=== PATIENT | male | born 1990 | race Caucasian/White ===

== ENCOUNTER 2023-07-10 07:53 | Outpatient (OUT) | payer BC, SELFPAY ==
--- NOTE | 2023-07-10 | CT_ITS ---
The [address] [address] Patient Name: GAEL ROBISON MRN: [id number] date: 1990 Sex: M Assigned Patient Location: CT Current Patient Location: CT Accession/Order Number: [id number] Exam Date: 07/10/2023 08:15 Report Date: 07/10/2023 14:28 At the request of: JASMEET WINKLER Procedure: CT head/brain wo con CT head/brain wo con, 07/10/2023 8:15 AM EDT INDICATION: PRESSURE IN HEAD COMPARISON: There is no appropriate prior study for comparison. TECHNIQUE: Axial CT images of the brain from skull base to vertex, including portions of the face and sinuses, were obtained without contrast . Multiplanar reformatted images were generated and reviewed as needed. Dose reduction techniques were achieved by using automated exposure control and/or adjustment of mA and/or kV according to patient size and/or use of iterative reconstruction technique. FINDINGS: The cerebral sulci as well as ventricular system are appropriate for age. There is no intracranial mass, mass effect, midline shift, intra or extra-axial fluid collection or hemorrhage. Mild focal thickening within the left ethmoidal cells. The visualized portions of orbits, mastoid air cells as well as remainder of paranasal sinuses are unremarkable. There is no suspicious osteolytic or osteoblastic lesion. CT/CT head/brain wo con IMPRESSION: No acute intracranial process is noted. Electronically authenticated by: CARLOS A ROSADO Date: 07/10/2023 14:28
== END 2023-07-10 07:54 | disposition home or self-care (01) ==
PROVIDERS: PCP Family Medicine; Visit Provider Family Medicine
DX: R51.9 Headache, unspecified (principal)
CPT/HCPCS: 70450

== ENCOUNTER 2025-05-07 14:23 | Outpatient (OUT) | payer BC, SELFPAY ==
--- OUTSIDE RECORDS SUMMARY | 2025-01-23 05:30 | XMS_ITS ---
Author Organization [facility] vices Address [address] [place], [place] [address], [place] [id number] Care Team Providers Care Pocket Builder Name Role Phone Maynor Robles Unavailable [phone] REASON FOR VISIT Prophy (A)(35) Encounters Encounter Location Date Provider Diagnosis [facility] [address] [place], [place] [id number] 01/23/2025 Maynor Robles Plan Of Treatment No Information Progress Notes * Conrad ROBISONDOB: 0 (35 yo M)Acc No.[id number]:01/23/2025 Patient: Conrad ORDONEZ Provider: Ammy Robles DDS :1990 A ge:35 Y S ex:Male Date:01/23/2025 Address:[address] [place], [place] [id number] Subjective: * Chief Complaints: * 1 . Prophy (A)(35). * Medical History: Objective: * Vitals: Assessment: Plan: * Treatment: * Billing Information: * Visit Code: * Procedure Codes: * Electronic signature of Ana Robles DDS on 05/07/2025 at 02:27 PM EDT Sign off status: Pending * Provider: Ammy Robles DDS Date: 01/23/2025 Generated for Christie moreno/Shree/Lenoreitting on: 05/07/2025 02:27 PM EDT
--- OUTSIDE RECORDS SUMMARY | 2025-05-07 14:26 | XMS_ITS | Encounter Summary ---
Author Organization [facility] Address [address] [facility] [place] [address] Care Team Providers Care Environmental Services Worker Name Role Phone Tomy Kelly MD Primary Care Provider [phone] Bryn Gibson MD Unavailable [phone] Encounter Details Date Type Department Care Team (Latest Contact Info) Description 04/24/2025 Travel Social History Tobacco Use Types Packs/Day Years Used Date Smoking Tobacco: Former Cigarettes Q uit: 07/26/2024 Smokeless Tobacco: Current Comments:1-2 cigs/day Alcohol Use Standard Drinks/Week Comments Yes 0 (1 standard drink = 0.6 oz pur e alcohol) Humiliation, Afraid, Rape, and Kick questionnair e Answer Date Recorded Within the last year, have y ou been afraid of your partner or ex-partner? No 07/13/2023 Within the last year, have y ou been humiliated or emotionally abused in other ways by your partner or ex-partner? No Within the last year, have y ou been kicked, hit, slapped, or otherwise physically hurt by your partner or ex-partner? No 07/13/2023 Within the last year, have y ou been raped or forced to have any kind of sexual activity by your partner or ex-partner? No 07/13/2023 Social Connection and Isolat ion Panel [NHANES] Answer Date Recorded In a typical week, how many times do you talk on the phone with family, friends, or neighbors? More than three times a week 07/13/2023 How often do you get togethe r with friends or relatives? Once a week 07/13/2023 How often do you attend chur ch or adventism services? Never 07/13/2023 Do you belong to any clubs o r organizations such as buddhism groups, unions, fraternal or athletic groups, or school groups? Yes 07/13/2023 How often do you attend meet ings of the clubs or organizations you belong to? Never 07/13/2023 Are you , , di vorced, , never , or living with a partner? 07/13/2023 AUDIT-C Answer Date Recorded Q1: How often do you have a drink containing alcohol? 4 or more times a week 07/13/2023 Q2: How many drinks containi ng alcohol do you have on a typical day when you are drinking? 1 or 2 Q3: How often do you have si x or more drinks on one occasion? Weekly 07/13/2023 Overall Financial Resource Strain (CARDIA) Answe r Date Recorded How hard is it for you to pa y for the very basics like food, housing, medical care, and heating? Not very hard 07/13/2023 PHQ-2 Answer Date Recorded Patient Health Questionnaire-2 Score 0 04/11/2025 [facility]at [facility] - Occupational Stress Questionnaire Answer Date Recorded Do you feel stress - tense, restless, nervous, or anxious, or unable to sleep at night because your mind is troubled all the time - these days? To some extent 07/13/2023 Exercise Vital Sign Answer Date Recorde d On average, how many days pe r week do you engage in moderate to strenuous exercise (like a brisk walk)? 5 days 07/13/2023 On average, how many minutes do you engage in exercise at this level? 150+ min 07/13/2023 Hunger Vital Sign Answer Date Recorded Within the past 12 months, y ou worried that your food would run out before you got the money to buy more. Never true 07/13/20 23 Within the past 12 months, t he food you bought just didn't last and you didn't have money to get more. Never true 07/13/2023 PRAPARE - Transportation Answer Date Re corded In the past 12 months, has l ack of transportation kept you from medical appointments or from getting medications? No 06/27 In the past 12 months, has l ack of transportation kept you from meetings, work, or from getting things needed for daily living? No 07/13/2023 Housing Stability Vital Sign Answer Lincoln e Recorded In the last 12 months, was t here a time when you were not able to pay the mortgage or rent on time? No 07/13/2023 In the last 12 months, how many places have you lived? 1 07/13/2023 In the last 12 months, was t here a time when you did not have a steady place to sleep or slept in a retirement (including now)? No 07/13/2023 Sex and Gender Information Value Date Recorded Sex Assigned at Not on file Legal Sex Male 6:52 PM EDT Gender Identity Not on file Sexual Orientation Not on file documented as of this encounter Plan of Treatment Upcoming Encounters Date Type Department Care Team (Late st Contact Info) Description 06/13/2025 5:00 PM EDT Office Visit [facility] [place] [facility] [address] [place] [place] [address] Naomi Duggan PA [address] [place] [address] documented as of this encounter Visit Diagnoses Not on filedocumented in this encounter Care Teams Environmental Services Worker Relationship Specialty Start Date End Date Tomy Kelly MD [address] [place] [address] PCP - General Family Medicine 02/02/23 Bryn Gibson MD [address] [place] [address] PCP - Yadiel Commercial 09/27/23 documented as of this encounter
--- OUTSIDE RECORDS SUMMARY | 2025-05-07 14:26 | XMS_ITS | Encounter Summary ---
Author Organization [facility] Address [address] [place] [address] Care Team Providers Care Manager R D Name Role Phone Tomy Kelly MD Primary Care Provider [phone] Bryn Gibson MD Unavailable [phone] Reason for Referral * Consultation (Routine) - Authorized Specialty Diagnoses / Procedures Referred By Contac t Referred To Contact Pain Medicine Diagnoses Degeneration of intervertebral disc of lumbar region with discogenic back pain and lower extremity pain Chronic bilateral low back pain with left-sided sciatica Procedures CT OFFICE/OUTPATIENT CARE ONE AT [facility] 60 MINUTES Naomi Duggan PA [address] [facility] [address] [place] [address] Phone: tel: fax: Fredi Lemos MD [address] [place] [address] Phone: tel: fax: Referral ID Status Reason Start Date Expiration Date Visits Requested Visits Authorized [id number] Authorized Specialty Services Required 04/25/2025 10/22/2025 1 1 Encounter Details Date Type Department Care Team (Late st Contact Info) Description 04/25/2025 Results [facility] [address] [facility] [address] [place] [address] Naomi Duggan PA [address] [facility] [address] [place] [address] Degeneration of intervertebral disc of lumbar region with discogenic back pain and lower extremity pain; Chronic bilateral low back pain with left-sided sciatica Social History Tobacco Use Types Packs/Day Years [...] 07/13/2023 How often do you attend chur or judaism services? Never 07/13/2023 Do you belong to any clubs o r organizations such as synagogue groups, unions, fraternal or athletic groups, or [...] Recorded Patient Health Questionnaire-2 Score 0 04/11/2025 [facility] of [facility]at ional [facility] - Occupational Stress Questionnaire Answer Date Recorded [...] place to sleep or slept in a correction (including now)? No 07/13/2023 Sex and Gender Information Value Date Recorded Sex Assigned at Not on file Legal Sex Male 6:52 PM EDT Gender Identity Not on file Sexual Orientation Not on file documented as of this encounter Miscellaneous Notes * Telephone Encounter - Tressa Bolaños MA - 04/25/2025 3:14 PM EDT Pt notified and willing to see pain management at [facility] * Telephone Encounter - CONOR Dubois - 04/25/2025 2:28 PM EDT Please let pt know that the MRI of his lumbar spine showed a large disc protrusion at the L4-L5 causing some some narrowing of the area by the L5 nerve root, and causing some mild to moderate spinal canal narrowing at this level. Some other degenerative (arthritic) changes are noted, but nothing assignificant as at the L4-L5 level. I would recommend either a referral to Pain Management, for consideration of possible injections tohelp with his symptoms, or referral to a Neurosurgeon for a consult. documented in this encounter Plan of Treatment Upcoming Encounters Date Type Department Care Team (Late st Contact Info) Description 06/13/2025 5:00 PM EDT Office Visit [facility] [place] [facility] [address] [facility] [address] [place] [address] Naomi Duggan PA [address] [facility] [address] [place] [address] Scheduled Referrals Name Type Priority Associated Diagnoses Orde r Schedule Ambulatory referral to Pain Medicine Outpatient Referral Routine Degeneration of intervertebral disc of lumbar region with discogenic back pain and lower extremity pain Chronic bilateral low back pain with left-sided sciatica Expected: 04/25/2025 (Approximate), Expires: 10/26/2025 documented as of this encounter Visit Diagnoses Diagnosis Degeneration of intervertebral disc of lumbar region with discogenic back pain and lower extremity pain Chronic bilateral low back pain with left-sided sciatica documented in this encounter Care Teams Manager R D Relationship Specialty Start Date End Date Tomy Kelly MD [address] [facility] [address] [place] [address] PCP - General Family Medicine 02/02/23 rByn Gibson MD [address] [facility] [address] [place] [address] PCP - Yadiel Commercial 09/27/23 documented as of this encounter
--- OUTSIDE RECORDS SUMMARY | 2025-05-07 14:26 | XMS_ITS | Encounter Summary ---
Author Organization [facility] Address [address] [facility] [place] [address] Care Team Providers Care Bereavement Program Coordinator Name Role Phone Tomy Kelly MD Primary Care Provider [phone] Bryn Gibson MD Unavailable [phone] Encounter Details Date Type Department Care Team (Late st Contact Info) Description 04/30/2025 Telephone [facility] [place] [facility] [address] [facility] [address] [place] [phone] Tomy Kelly MD [address] [place] [facility] [address] [place] [address] Social History Tobacco Use Types Packs/Day Years [...] often do you attend chur ch or evangelical services? Never 07/13/2023 Do you belong to any clubs o r organizations such as catholic groups, unions, fraternal or athletic groups, or [...] when you are drinking? 1 or 2 3 Q3: How often do you have si x or more drinks on one occasion? Weekly 07/13/2023 Overall Financial Resource Strain (CARDIA) Answe r Date Recorded How hard is it for you to pa y for the very basics like food, housing, medical care, and heating? Not very hard 07/13/2023 PHQ-2 Answer Date Recorded Patient Health Questionnaire-2 Score 0 04/11/2025 [facility] Questionnaire Answer Date [...] place to sleep or slept in a senior care (including now)? No 07/13/2023 Sex and Gender Information Value Date Recorded Sex Assigned at Not on file Legal Sex Male 6:52 PM EDT Gender Identity Not on file Sexual Orientation Not on file documented as of this encounter Miscellaneous Notes * Telephone Encounter - Tressa Bolaños MA - 04/30/2025 10:53 AM EDT Pt notified * Telephone Encounter - CONOR Dubois - 04/30/2025 10:50 AM EDT Sent in a small supply of [place] for him to take for pain as needed. Please let pt know that it can cause drowsiness. Take only as needed. * Telephone Encounter - Clara Waller - 04/30/2025 9:12 AM EDT Patient called asking if there is anything that can be done for him between now and seeing pain management. He said he can't get into them until the end of the month and has an appt scheduled but hisback hurts so bad that he can barely walk. documented in this encounter Plan of Treatment Upcoming Encounters Date Type Department Care Team (Late st Contact Info) Description 06/13/2025 5:00 PM EDT Office Visit [facility] [place] [facility] [address] [facility] [address] [place] [address] Naomi Duggan PA [address] [place] [facility] [address] [place] [address] documented as of this encounter Visit Diagnoses Diagnosis Degeneration of intervertebral disc of lumbar region with discogenic back pain and lower extremity pain- Primary documented in this encounter Care Teams Bereavement Program Coordinator Relationship Specialty Start Date End Date Tomy Kelly MD [address] [facility] [address] [place] [address] PCP - General Family Medicine 02/02/23 Bryn Gibson MD [address] [place] [facility] [address] [place] [address] PCP - Yadiel Montague 09/27/23 documented as of this encounter
--- OUTSIDE RECORDS SUMMARY | 2025-05-07 14:27 | XMS_ITS | Clinical Summary ---
Author Organization Bulu Box tem Address [id number] [address] [place] [address] Care Team Providers Care Pipe Smoker Machine Operator Name Role Phone Unavailable Primary Care Provider Unavailabl e Encounters Date Type Department Care Team Description 02/16/2025 Travel from Last 3 Months Social History Tobacco Use Types Packs/Day Years Used Date Smoking Tobacco: Never Assessed Childcare Answer Date Recorded Childcare Unknown 03/07/2019 Employment Answer Date Recorded Employment Unknown 03/07/2019 Sex and Gender Information Value Date Recorded Sex Assigned at Not on file Legal Sex Male 9:25 PM EDT Gender Identity Not on file Sexual Orientation Not on file Plan of Treatment Health Maintenance Due Date Last Done Comments Depression Screening 2002 Tobacco Screening 2002 Adult BMI Screening 01/08/2008 Influenza Vaccine 05/28/2025 08/09/2024, , 07/14/2020, Additional history exists DTaP,Tdap and Td Vaccines (3 - Td or Tdap) 08/12/2029 08/12/2019, 08/12/2019 Medical Devices Not on file Procedures Procedure Name Priority Date/Time Associated Diagnosis Comments SEMEN ANALYSIS, POST-VASECTOMY Routine 02/16/2025 1:40 PM EDT Encounter for sterilization from Last 3 Months Results * Semen analysis, post-vasectomy (02/16/2025 1:40 PM EDT) Semen-post vasectomy No sperm seen on wet prep. No sperm seen on cytospin preps. No sperm seen on wet prep. No sperm seen on cytospin preps. 02/17/2025 10:15 AM EDT [facility] Semen Penile structure / Unknown 02/16/2025 1:40 PM EDT 02/16/2025 3:01 PM EDT Chris Moise MD BODY FLUIDS AND STOOL S ORDERABLES Final Result [facility] [address] [place] [address], from Last [address] [place] [address] [place] [address]
--- OUTSIDE RECORDS SUMMARY | 2025-05-07 14:27 | XMS_ITS | Encounter Summary ---
Author Organization [facility] Address [address] [facility] [place] [address] Care Team Providers Care Plasterer Spray Gun Name Role Phone Tomy Kelly MD Primary Care Provider [phone] Brny Gibson MD Unavailable [phone] Encounter Details Date Type Department Care Team (Late st Contact Info) Description 07/13/2023 Orders Only [facility] [place] [facility] [address] [place] [place] [address] A, Unknown Practice [address] [id number] Social History Tobacco Use Types Packs/Day Years Used Date Smoking Tobacco: Never Assessed Humiliation, Afraid, Rape, and Kick questionnair e [...] often do you attend chur ch or gnosticism services? Never 07/13/2023 Do you belong to any clubs o r organizations such as voodoo groups, unions, fraternal or athletic groups, or [...] care, and heating? Not very hard 07/13/2023 [facility] - Occupational Stress Questionnaire Answer Date Recorded [...] place to sleep or slept in a intermediate (including now)? No 07/13/2023 Sex and Gender Information Value Date Recorded Sex Assigned at Not on file Legal Sex Male 6:52 PM EDT Gender Identity Not on file Sexual Orientation Not on file COVID-19 Exposure Response Date Recorded In the last 10 days, have yo u been in contact with someone who was confirmed or suspected to have Coronavirus/COVID-19? No / Unsure 07/13/2023 5:08 PM EDT documented as of this encounter Functional Status * Audit-C Score Answer Date of Assessment Author 7 07/13/2023 5:07 PM EDT Mychart, Generic * Q1: How often do you have a drink containing alcohol? Answer Date of Assessment Author 4 or more times a week 07/13/2023 5:07 PM EDT My chart, Generic * Q2: How many drinks containing alcohol do you have on a typical day when you are drinking? Answer Date of Assessment Author 1 or 2 07/13/2023 5:07 PM EDT Mychart, Generic * Q3: How often do you have six or more drinks on one occasion? Answer Date of Assessment Author Weekly 07/13/2023 5:07 PM EDT Mychart, Generic documented as of this encounter Plan of Treatment Upcoming Encounters Date Type Department Care Team (Late st Contact Info) Description 06/13/2025 5:00 PM EDT Office Visit [facility] [place] [facility] [address] [facility] [address] [place] [address] Naomi Duggan PA [address] [place] [address] [place] [address] documented as of this encounter Procedures Procedure Name Priority Date/Time Associated Diagnosis Comments CT HEAD OR BRAIN W/ & W/O CONTRAST Routine 07/10/2023 10:54 AM EDT documented in this encounter Results * CT HEAD OR BRAIN W/ & W/O CONTRAST (07/10/2023 10:54 AM EDT) Anatomical Region Laterality Modality Radiographic Magalie ging us Unknown Practice A IMG XR PROCEDURES Final Resul t documented in this encounter Visit Diagnoses Not on filedocumented in this encounter Care Teams Plasterer Spray Gun Relationship Specialty Start Date End Date Tomy Kelly MD [address] [place] [address] [place] [address] PCP - General Family Medicine 02/02/23 Bryn Gibson MD [address] [facility] [address] [place] [address] PCP - Yadiel [employer] 09/27/23 documented as of this encounter
--- OUTSIDE RECORDS SUMMARY | 2025-05-07 14:27 | XMS_ITS | Encounter Summary ---
Author Organization [facility] Address [address] [facility] [place] [address] Care Team Providers Care Adult Probation Officer Name Role Phone Tomy Kelly MD Primary Care Provider [phone] Bryn Gibson MD Unavailable [phone] Encounter Details Date Type Department Care Team (Late st Contact Info) Description 08/14/2024 [facility] [place] [facility] [address] [facility] [address] [place] [address] Tomy Kelyl MD 112 [facility] 110 [place] [address] Social History Tobacco Use Types Packs/Day Years Used Date Smoking Tobacco: Former Cigarettes Q uit: 07/26/2024 Smokeless Tobacco: Never Comments:6-10 cigs/day Alcohol Use Standard Drinks/Week Comments Yes [...] often do you attend chur ch or baptist services? Never 07/13/2023 Do you belong to any clubs o r organizations such as taoism groups, unions, fraternal or athletic groups, or [...] care, and heating? Not very hard 07/13/2023 [facility] - Occupational Stress [...] place to sleep or slept in a nursing home (including now)? No 07/13/2023 Sex and Gender [...] Visit [facility] [place] [facility] [address] [facility] [address] [place] [address] Naomi Duggan PA [address] [facility] [address] [place] [address] documented as of this encounter Visit Diagnoses Not on filedocumented in this encounter Care Teams Adult Probation Officer Relationship Specialty Start Date End Date Tomy Kelly MD [address] [place] [address] [place] [address] PCP - General Family Medicine 02/02/23 Bryn Gibson MD [address] [place] [address] [place] [address] PCP - Yadiel [employer] 09/27/23 documented as of this encounter
--- OUTSIDE RECORDS SUMMARY | 2025-05-07 14:27 | XMS_ITS | Encounter Summary ---
Author Organization [facility] Address [address] [facility] [place] [address] Care Team Providers Care Administrative Coordinator Name Role Phone Tomy Kelly MD Primary Care Provider [phone] Bryn Gibson MD Unavailable Encounter Details Date Type Department Care Team (Late st Contact Info) Description 10/23/2024 Abstract [facility] [place] [facility] [address] [facility] [address] [place] [address] Tomy Kelly MD [address] [facility] [address] [place] [address] Social History Tobacco Use Types Packs/Day Years [...] often do you attend chur ch or yazidi services? Never 07/13/2023 Do you belong to any clubs o r organizations such as druze groups, unions, fraternal or athletic groups, or [...] care, and heating? Not very hard 07/13/2023 [facility] - Occupational Stress [...] place to sleep or slept in a halfway (including now)? No 07/13/2023 Sex and Gender [...] Visit [facility] [place] [facility] [address] [facility] [address] [place] [address] Naomi Duggan PA [address] [facility] [address] [place] [address] documented as of this encounter Visit Diagnoses Not on filedocumented in this encounter Care Teams Administrative Coordinator Relationship Specialty Start Date End Date Tomy Kelly MD [address] [place] [address] [place] [address] PCP - General Family Medicine 02/02/23 Bryn Gibson MD [address] [place] [address] [place] [address] PCP - Yadiel [employer] 09/27/23 documented as of this encounter
--- OUTSIDE RECORDS SUMMARY | 2025-05-07 14:27 | XMS_ITS | Encounter Summary ---
Author Organization [facility] Address [address] [facility] [place] [address] Care Team Providers Care Press Smith Helper Name Role Phone Tomy Kelly MD Primary Care Provider [phone] Bryn Gibson MD Unavailable [phone] Encounter Details Date Type Department Care Team (Late st Contact Info) Description 11/08/2023 Abstract [facility] [place] [facility] [address] [facility] 110 [place] [address] Tomy Kelly MD 112 [facility] 110 [place] [address] Social History Tobacco Use Types Packs/Day Years Used Date Smoking Tobacco: Every Day Cigarettes Smokeless Tobacco: Never Comments:6-10 cigs/day Alcohol Use [...] any clubs o r organizations such as mormonism groups, unions, fraternal or athletic groups, or [...] care, and heating? Not very hard 07/13/2023 [facility] Questionnaire Answer Date [...] place to sleep or slept in a residential (including now)? No 07/13/2023 Sex and Gender [...] Visit [facility] [place] [facility] [address] [facility] [address] [place] [address] Naomi Duggan PA [address] [facility] [address] [place] [address] documented as of this encounter Visit Diagnoses Not on filedocumented in this encounter Care Teams Press Smith Helper Relationship Specialty Start Date End Date Tomy Kelly MD [address] [place] [address] [place] [address] PCP - General Family Medicine 02/02/23 Bryn Gibson MD [address] [place] [address] [place] [address] PCP - [employer] 09/27/23 documented as of this encounter
--- OUTSIDE RECORDS SUMMARY | 2025-05-07 14:27 | XMS_ITS | Clinical Summary ---
Author Organization [facility] Healthcare Address [address] [place] [address] Care Team Providers Care Party Director Name Role Phone Tomy Kelly MD Primary Care Provider [phone] Bryn Gibson MD Unavailable [phone] Allergies No known active allergies Medications tiZANidine (Zanaflex) 4 MG tabletIndications: Lumbar paraspinal muscle spasm Take 1 tablet (4 mg) by mouth 2 (two) times a day as needed for muscle spasms 60 tablet 5 08/09/20 24 Active propranolol (Inderal) 40 MG tabletIndications: Primary hypertension TAKE 1 TABLET BY MOUTH EVERY MORNING 100 tablet 2 08/16/20 24 Active albuterol HFA 90 mcg/act inhalerIndications :Shortness of breath Inhale 2 puffs in the morning and 2 puffs before bedtime. 18 g 11/08/19 25 Active fluticasone (Flonase) 50 MCG/ACT nasal sprayIndications:P ND (post-nasal drip) Administer 2 sprays into each nostril Daily for 10 days Shake gently. Before first use, prime pump. After use, clean tip and replace cap. 16 g 11/08/19 25 Active predniSONE (Deltasone) 10 MG tabletIndications: Degeneration of intervertebral disc of lumbar region with discogenic back pain and lower extremity pain Take 4 tablets (40 mg) by mouth Daily for 3 days, THEN 3 tablets (30 mg) Daily for 3 days, THEN 2 tablets (20 mg) Daily for 3 days, THEN 1 tablet (10 mg) Daily for 3 days. 30 tablet 04/16/20 25 025 HYDROcodone-acetam inophen ([place]) 5-325 MG tabletIndications: Degeneration of intervertebral disc of lumbar region with discogenic back pain and lower extremity pain Take 1 tablet by mouth every 6 (six) hours if needed for severe pain for up to 5 days 20 tablet 04/30/20 25 025 Hospital, Clinic, or Other Facility Administered Medication Ordered Dose Route Frequency Start Date End Date Status ketorolac (Toradol) injection 60 mgIndications:Chronic bilateral low back pain with left-sided sciatica 60 mg IM Once 04/11/2025 04/11/2025 Ended Active Problems Problem Noted Date Diagnosed Date Degeneration of intervertebr al disc of lumbar region with discogenic back pain and lower extremity pain 04/12/2025 Lumbar paraspinal muscle spasm 08/09/2024 Primary hypertension 09/07/2023 Shoulder joint pain 07/14/2023 Tobacco dependence 07/14/2023 Encounters Date Type Department Care Team Description 04/30/2025 Telephone [facility] [address] [facility] [address] [place] [phone] Tomy Kelly MD 04/25/2025 Results Follow-Up [facility] [place] [facility] [address] [facility] [address] [place] [phone] Naomi Duggan PA Degeneration of intervertebral disc of lumbar region with discogenic back pain and lower extremity pain; Chronic bilateral low back pain with left-sided sciatica 04/24/2025 1:30 PM EDT Ancillary Procedure [facility] [address] [place] [phone] Degeneration of intervertebral disc of lumbar region with discogenic back pain and lower extremity pain 04/24/2025 Travel 04/16/2025 Telephone [facility] [place] [facility] [address] [facility] [address] [place] [phone] Tomy Kelly MD 04/12/2025 Telephone [facility] [place] [address] [place] [phone] Naomi Duggan PA 04/11/2025 4:00 PM EDT Office Visit [facility] [place] [facility] [address] [place] [place] [phone] Naomi Duggan PA Chronic bilateral low back pain with left-sided sciatica (Primary Dx) 04/11/2025 2:00 PM EDT Ancillary Procedure [facility] [address] [place] [address] Chronic bilateral low back pain with left-sided sciatica 04/11/2025 1:30 PM EDT Ancillary Procedure [facility] [address] [place] [address] Persistent cough for 3 weeks or longer 04/11/2025 Travel from Last 3 Months Immunizations Immunization Administration Dates Next Due Influenza, injectable, MDCK, preservative free, quadrivalent 08/02/2022,08/12/2019 Influenza, injectable, quadrivalent, preservativ e free 07/14/2020,11/16/2018 Influenza, seasonal, injectable, preservative fr ee 08/09/2024 Td (adult), 5 Lf tetanus tox oid, preservative free, adsorbed 08/12/2019 Tdap 08/12/2019 Family History Medical History Relation Name Comments Diabetes Father Relation Name Status Comments Father Alive Mother Alive Social History Tobacco Use Types Packs/Day Years Used Date Smoking Tobacco: Former Cigarettes Q uit: 07/26/2024 Smokeless Tobacco: Current Tobacco Cessation:Ready to Q uit: Not Asked; Counseling Given: Yes Comments:1-2 cigs/day Alcohol Use Standard Drinks/Week Comments [...] How often do you attend chur or oriental orthodox services? Never 07/13/2023 Do you belong to any clubs o r organizations such as religious groups, unions, fraternal or athletic groups, or [...] Recorded Patient Health Questionnaire-2 Score 0 04/11/2025 [facility] - Occupational Stress [...] place to sleep or slept in a [place] facility (including now)? No 07/13/2023 Sex and Gender Information Value Date Recorded Sex Assigned at Not on file Legal Sex Male 6:52 PM EDT Gender Identity Not on file Sexual Orientation Not on file Last Filed Vital Signs Vital Sign Reading Time Taken Comments Blood Pressure 130/88 04/11/2025 3:51 PM EDT Pulse 77 04/11/2025 3:51 PM EDT Temperature 36.7 C (98 F) 12/06/2024 5:03 PM EDT Respiratory Rate 16 12/06/2024 5:03 PM EDT Oxygen Saturation 98% 04/11/2025 3:51 PM EDT Inhaled Oxygen Concentration - - Weight 106 kg (233 lb) 04/11/2025 3:51 PM EDT Height 182.9 cm (6') 04/11/2025 3:51 PM EDT Body Mass Index 31.6 04/11/2025 3:51 PM EDT Plan of Treatment Upcoming Encounters Date Type Department Care Team (Late st Contact Info) Description 06/13/2025 5:00 PM EDT Office Visit [facility] [place] [facility] [address] [place] [address] Naomi Duggan PA [address] [place] [address] [place] [address] Health Maintenance Due Date Last Done Comments Influenza Vaccine (#1) 2025 4, 08/02/2022, 07/14/2020, Additional history exists Procedures Procedure Name Priority Date/Time Associated Diagnosis Comments MR LUMBAR SPINE WO CONTRAST Routine 04/24/2025 2:15 PM EDT Degeneration of intervertebral disc of lumbar region with discogenic back pain and lower extremity pain XR LUMBAR SPINE 4+ VIEWS WITH FLEXION EXTENSION Routine 04/11/2025 4:52 PM EDT Chronic bilateral low back pain with left-sided sciatica XR CHEST 2 VIEWS Routine 04/11/2025 4:52 PM EDT Persistent cough for 3 weeks or longer from Last 3 Months Results * MR lumbar spine wo contrast (04/24/2025 2:15 PM EDT) Anatomical Region Laterality Modality Spine, L-spine Magnetic Resonan ce 04/25/2025 10:0 3 AM EDT Impressions 04/25/2025 10:22 AM EDT Degenerative changes lumbar spine as discussed. Large disc protrusion at L4-L5 as discussed. ELECTRONICALLY SIGNED BY: MD Antoinette Knox 04/25/2025 10:22 AM EDT EXAMINATION/TECHNIQUE: MR LUMBAR SPINE WO CONTRAST HISTORY: Worsening back pain. Concern for foraminal narrowing or canal stenosis. Chronic back pain with left radiculopathy. Denies prior lumbar surgery. COMPARISON: Radiographs 04/11/2025. RESULT: Counting reference: Lumbosacral junction. For the purposes of this report, L5-S1 is considered the last well-formed disc space. 5 lumbar type vertebral bodies. Alignment: Straightening of the lumbar lordosis. Bone marrow signal: No evidence for acute or chronic fracture. No destructive osseous lesions. Endplate degenerative signal especially at L4-L5 and L5-S1. Multilevel disc height loss, especially lower lumbar spine. Conus: The conus is within normal limits of signal intensity and morphology. Paraspinal soft tissues: Unremarkable. Lower thoracic spine: Visualized lower thoracic canal and foramina without significant narrowing. T12-L1: No significant canal or foraminal narrowing. L1-L2: No significant canal or foraminal narrowing. L2-L3: Small disc bulge. Endplate osteophytes. Ligamentous hypertrophy. Facet degenerative changes. No significant canal or foraminal narrowing. L3-L4: Broad-based disc bulge. Small central zone disc protrusion. Endplate osteophytes. Ligamentous hypertrophy. Facet degenerative changes. No significant canal or foraminal narrowing. L4-L5: Large disc protrusion in the central to left subarticular region, with abutment/effacement of the descending left L5 and adjacent nerve roots. The disc protrusion measures around 2.1 cm transverse by 0.8 cm AP, and also contributes to mild to moderate canal narrowing at this level. Endplate osteophytes, disc height loss, facet degenerative changes, and ligamentous hypertrophy. No significant foraminal narrowing. Left subarticular narrowing. L5-S1: Small central zone disc protrusion. Annular fissure. Disc height loss. Endplate osteophytes. Facet degenerative changes. Ligamentous hypertrophy. Mild canal narrowing without significant foraminal narrowing. Sacrum and iliac wings: The visualized sacrum and iliac wings are unremarkable. Procedure Note Bryn Montana MD - 04/25/2025 EXAMINATION/TECHNIQUE: MR LUMBAR SPINE WO CONTRAST HISTORY: Worsening back pain. Concern for foraminal narrowing or canalstenosis. Chronic back pain with left radiculopathy. Denies prior lumbarsurgery. COMPARISON: Radiographs 04/11/2025. RESULT: Counting reference: Lumbosacral junction. For the purposes of thisreport, L5-S1 is considered the last well-formed disc space. 5 lumbar typevertebral bodies. Alignment: Straightening of the lumbar lordosis. Bone marrow signal: No evidence for acute or chronic fracture. Nodestructive osseous lesions. Endplate degenerative signal especially atL4-L5 and L5-S1. Multilevel disc height loss, especially lower lumbarspine. Conus: The conus is within normal limits of signal intensity andmorphology. Paraspinal soft tissues: Unremarkable. Lower thoracic spine: Visualized lower thoracic canal and foraminawithout significant narrowing. T12-L1: No significant canal or foraminal narrowing. L1-L2: No significant canal or foraminal narrowing. L2-L3: Small disc bulge. Endplate osteophytes. Ligamentous hypertrophy.Facet degenerative changes. No significant canal or foraminal narrowing. L3-L4: Broad-based disc bulge. Small central zone disc protrusion.Endplate osteophytes. Ligamentous hypertrophy. Facet degenerative changes.No significant canal or foraminal narrowing. L4-L5: Large disc protrusion in the central to left subarticularregion, with abutment/effacement of the descending left L5 and adjacentnerve roots. The disc protrusion measures around 2.1 cm transverse by 0.8cm AP, and also contributes to mild to moderate canal narrowing at thislevel. Endplate osteophytes, disc height loss, facet degenerative changes,and ligamentous hypertrophy. No significant foraminal narrowing. Leftsubarticular narrowing. L5-S1: Small central zone disc protrusion. Annular fissure. Disc heightloss. Endplate osteophytes. Facet degenerative changes. Ligamentoushypertrophy. Mild canal narrowing without significant foraminalnarrowing. Sacrum and iliac wings: The visualized sacrum and iliac wings areunremarkable. IMPRESSION: Degenerative changes lumbar spine as discussed. Large disc protrusion at L4-L5 as discussed. ELECTRONICALLY SIGNED BY: Bryn Montana MD Naomi PERDOMO IMG MRI PROCEDURES Final Resul t * XR lumbar spine 4+ views w flexion extension (04/11/2025 4:52 PM EDT) Anatomical Region Laterality Modality Spine, L-spine Radiographic Magalie ging 04/12/2025 10:4 4 AM EDT Impressions 04/12/2025 10:45 AM EDT Degenerative changes lower lumbar spine. ELECTRONICALLY SIGNED BY: Bryn Montana MD Located Within [facility] 04/12/2025 10:45 AM EDT EXAMINATION/TECHNIQUE: XR LUMBAR SPINE 4+ VIEWS WITH FLEXION EXTENSION HISTORY: Chronic low back pain. COMPARISON: None RESULT: Counting Reference: L5-S1 is the last well-formed disc space. Straightening of the lumbar lordosis. No significant change in alignment from flexion to extension. No evidence for acute fracture. Vertebral body heights maintained. Moderate disc height loss at L5-S1. Mild disc height loss at L4-L5. Endplate osteophytes. Lower facet degenerative changes. Visualized sacrum intact. SI joints intact. Visualized bony pelvis and hips intact. Soft tissues unremarkable. Procedure Note Bryn Monatna MD - 04/12/2025 EXAMINATION/TECHNIQUE: XR LUMBAR SPINE 4+ VIEWS WITH FLEXION EXTENSION HISTORY: Chronic low back pain. COMPARISON: None RESULT: Counting Reference: L5-S1 is the last well-formed disc space. Straightening of the lumbar lordosis. No significant change in alignmentfrom flexion to extension. No evidence for acute fracture. Vertebral bodyheights maintained. Moderate disc height loss at L5-S1. Mild disc heightloss at L4-L5. Endplate osteophytes. Lower facet degenerative changes.Visualized sacrum intact. SI joints intact. Visualized bony pelvis andhips intact. Soft tissues unremarkable. IMPRESSION: Degenerative changes lower lumbar spine. ELECTRONICALLY SIGNED BY: Bryn Montana MD Naomi PERDOMO IMG XR PROCEDURES Final Result * XR chest 2 views (04/11/2025 4:52 PM EDT) Anatomical Region Laterality Modality Chest Radiographic Magalie ging 04/12/2025 10:4 5 AM EDT Impressions 04/12/2025 10:45 AM EDT No acute radiographic findings. ELECTRONICALLY SIGNED BY: Bryn Montana MD Located Within [facility] 04/12/2025 10:45 AM EDT EXAMINATION/TECHNIQUE: XR CHEST 2 VIEWS HISTORY: Cough. COMPARISON: None RESULT: No consolidation. No pleural effusion. No pneumothorax. Normal cardiomediastinal silhouette. No acute osseous findings. Procedure Note Bryn Montana MD - 04/12/2025 EXAMINATION/TECHNIQUE: XR CHEST 2 VIEWS HISTORY: Cough. COMPARISON: None RESULT: No consolidation. No pleural effusion. No pneumothorax. Normalcardiomediastinal silhouette. No acute osseous findings. IMPRESSION: No acute radiographic findings. ELECTRONICALLY SIGNED BY: Bryn Montana MD Naomi PERDOMO IMG XR PROCEDURES Final Result from Last [place] [address] BS Care Teams Party Director Relationship Specialty Start Date End Date Tomy Kelly MD [address] [facility] [address] [place] [address] PCP - General Family Medicine 02/02/23 Bryn Gibson MD [address] [facility] [address] [place] [address] PCP - [place] [employer] 09/27/23
--- OUTSIDE RECORDS SUMMARY | 2025-05-07 14:27 | XMS_ITS | Encounter Summary ---
Author Organization [facility] Address [address] [facility] [place] [address] Care Team Providers Care Linux Kernel Engineer Name Role Phone Tomy Kelly MD Primary Care Provider [phone] Bryn Gibson MD Unavailable [phone] Encounter Details Date Type Department Care Team (Late st Contact Info) Description 10/03/2024 [facility] [place] [facility] [address] [facility] 110 [place] [phone] Tomy Kelly MD 112 [facility] 110 [place] [address] Social History Tobacco Use Types Packs/Day Years [...] often do you attend chur ch or uatsdin services? Never 07/13/2023 Do you belong to any clubs o r organizations such as roman catholic groups, unions, fraternal or athletic groups, [...] care, and heating? Not very hard 07/13/2023 [facility] ional [facility] - Occupational [...] Visit [facility] [place] [facility] [address] [facility] [address] [place] [address] Naomi Duggan PA [address] [facility] [address] [place] [address] documented as of this encounter Visit Diagnoses Not on filedocumented in this encounter Care Teams Linux Kernel Engineer Relationship Specialty Start Date End Date Tomy Kelly MD [address] [place] [address] [place] [address] PCP - General Family Medicine 02/02/23 Bryn Gibson MD [address] [place] [address] [place] [address] PCP - [employer] 09/27/23 documented as of this encounter
--- OUTSIDE RECORDS SUMMARY | 2025-05-07 14:27 | XMS_ITS | Encounter Summary ---
Author Organization [facility] Address [address] [facility] [place] [address] Care Team Providers Care Recovery Rn Name Role Phone Tomy Kelly MD Primary Care Provider [phone] Bryn Gibson MD Unavailable [phone] Encounter Details Date Type Department Care Team (Late st Contact Info) Description 07/14/2023 Abstract [facility] [place] [facility] [address] [facility] 110 [place] [phone] Naomi Duggan, CON[place] [address] [facility] 110 [place] [address] Social History Tobacco Use Types Packs/Day Years Used Date Smoking Tobacco: Every Day Cigarettes Smokeless Tobacco: Never Tobacco Cessation:Ready to Q uit: Not Asked; Counseling Given: Not Answered Comments:6-10 cigs/day Alcohol Use Standard Drinks/Week Comments [...] any clubs o r organizations such as shinto groups, unions, fraternal or athletic groups, or [...] care, and heating? Not very hard 07/13/2023 [facility] - [...] PM EDT documented as of this encounter Plan of Treatment Upcoming Encounters Date Type Department Care Team (Late st Contact Info) Description 06/13/2025 5:00 PM EDT Office Visit [facility] [place] [facility] [address] [facility] 110 [place] [address] Naomi Duggan PA [address] [facility] 110 [place] [address] documented as of this encounter Visit Diagnoses Not on filedocumented in this encounter Care Teams Recovery Rn Relationship Specialty Start Date End Date Tomy Kelly MD [address] [facility] [address] [place] [address] PCP - General Family Medicine 02/02/23 Bryn Gibson MD [address] [facility] 110 [place] [address] PCP - [place] [employer] 09/27/23 documented as of this encounter
--- OUTSIDE RECORDS SUMMARY | 2025-05-07 14:27 | XMS_ITS | Encounter Summary ---
Author Organization [facility] Address [address] [place] [address] Care Team Providers Care Oil Rig Roughneck Name Role Phone Tomy Winkler MD Primary Care Provider [phone] Bryn Gibson MD Unavailable [phone] Encounter Details Date Type Department Care Team (Late st Contact Info) Description 07/10/2023 Clinisync Result Encounter [facility] External Department Unsolicited Tomy Winkler MD [address] [place] [address] [place] [address] Social History Tobacco Use Types Packs/Day Years [...] any clubs o r organizations such as gnosticism groups, unions, fraternal or athletic groups, or [...] care, and heating? Not very hard 07/13/2023 [facility] ional Health - Occupational [...] place to sleep or slept in a prison (including now)? No 07/13/2023 Sex and Gender [...] [place] [facility] [address] [place] [place] [address] Naomi Duggan PA [address] [place] [address] [place] [address] documented as of this encounter Procedures Procedure Name Priority Date/Time Associated Diagnosis Comments CT HEAD/BRAIN WO 07/10/2023 2:28 PM EDT documented in this encounter Results * CT HEAD/BRAIN WO (07/10/2023 2:28 PM EDT) Anatomical Region Laterality Modality Radiographic Magalie ging 07/10/2023 2:28 PM EDT Narrative 07/10/2023 2:28 PM EDT [address] [address] [address] Scan Report Signed Patient: CONRAD ROBISON MR#: [id number] : 1990 Acct:[id number] Age/Sex: 33 / M ADM Date: 07/10/23 Loc: CT Attending Dr: TOMY WINKLER Ordering Physician: TOMY WINKLER Date of Service: 07/10/23 Procedure(s): CT head/brain wo con Accession Number(s): [id number] cc: TOMY WINKLER [address] [address] Patient Name: CONRAD ROBISON MRN: [id number] date: 1990 Sex: M Assigned Patient Location: CT Current Patient Location: CT Accession/Order Number: [id number] Exam Date: 07/10/2023 08:15 Report Date: 07/10/2023 14:28 At the request of: TOMY WINKLER Procedure: CT head/brain wo con CT head/brain wo con, 07/10/2023 8:15 AM EDT INDICATION: PRESSURE IN HEAD COMPARISON: There is no appropriate prior study for comparison. TECHNIQUE: Axial CT images of the brain from skull base to vertex, including portions of the face and sinuses, were obtained without contrast . Multiplanar reformatted images were generated and reviewed as needed. Dose reduction techniques were achieved by using automated exposure control and/or adjustment of mA and/or kV according to patient size and/or use of iterative reconstruction technique. FINDINGS: The cerebral sulci as well as ventricular system are appropriate for age. There is no intracranial mass, mass effect, midline shift, intra or extra-axial fluid collection or hemorrhage. Mild focal thickening within the left ethmoidal cells. The visualized portions of orbits, mastoid air cells as well as remainder of paranasal sinuses are unremarkable. There is no suspicious osteolytic or osteoblastic lesion. CT/CT head/brain wo con IMPRESSION: No acute intracranial process is noted. Electronically authenticated by: CAIO FLOWER Date: 07/10/2023 14:28 Dictated By: Caio Flower M.D. Signed By: 07/10/23 1431 DD/ 1428 TD/TT: Trash Collector: Procedure Note Radiology, Radiologist, MD - 07/12/2023 [place] [address] CT Scan Report Signed Patient: CONRAD ROBISON MMR#: [id number] : 1990Acct:[id number] Age/Sex: 33 / MADM Date: 07/10/23 Loc: CT Attending Dr: TOMY WINKLER Ordering Physician: TOMY WINKLER Date of Service: 07/10/23 Procedure(s): CT head/brain wo con Accession Number(s): [id number] cc: TOMY WINKLER [address] [address] Patient Name: CONRAD ROBISON MRN: [id number] date: 1990 Sex: M Assigned Patient Location: CT Current Patient Location: CT Accession/Order Number: [id number] Exam Date: 07/10/2023 08:15 Report Date: 07/10/2023 14:28 At the request of: TOMY WINKLER Procedure: CT head/brain wo con CT head/brain wo con, 07/10/2023 8:15 AM EDT INDICATION: PRESSURE IN HEAD COMPARISON: There is no appropriate prior study for comparison. TECHNIQUE: Axial CT images of the brain from skull base to vertex,including portions of the face and sinuses, were obtained without contrast .Multiplanar reformatted images were generated and reviewed as needed. Dose reduction techniques were achieved by using automated exposurecontrol and/or adjustment of mA and/or kV according to patient size and/or use of iterative reconstruction technique. FINDINGS: The cerebral sulci as well as ventricular system are appropriate for age. There is no intracranial mass, mass effect, midline shift, intra or extra-axial fluid collection or hemorrhage. Mild focal thickening within the left ethmoidal cells. The visualized portions of orbits, mastoid air cells as well as remainderof paranasal sinuses are unremarkable. There is no suspicious osteolytic or osteoblastic lesion. CT/CT head/brain wo con IMPRESSION: No acute intracranial process is noted. Electronically authenticated by: CAIO FLOWER Date: 07/10/2023 14:28 Dictated By: Caio Flower M.D. Signed By:07/10/23 1431 DD/ 1428 TD/TT: Trash Collector: Tomy Winkler MD IMG XR PROCEDURES Final Result documented in this encounter Visit Diagnoses Not on filedocumented in this encounter Care Teams Oil Rig Roughneck Relationship Specialty Start Date End Date Tomy Winkler MD [address] [facility] 110 [place] [address] PCP - General Family Medicine 02/02/23 Bryn Gibson MD [address] [facility] 110 [place] [address] PCP - Yadiel [place] 09/27/23 documented as of this encounter
--- NOTE | 2025-05-09 13:31 | PM.CN ---
Consult Note: HPI Data of Consult Patient: new to practice Consult date: 05/07/25 Requesting Physician: Fredi Lemos MD Primary Care Provider: JASMEET WINKLER Consult Narrative Reason for consult: low back, bilateral lower extremity pain Narrative: 35yom who presents for evaluation. notes worsening low back, lower extremity pain, especially with activity. has completed >6 weeks of provider directed home exercises, physical therapy, which exacerbated pain. has tried various medications, currently on norco, but wants to stop due to work. lumbar mri reviewed, disc bulge at l4-5 with compression of nerve root. denies adverse med side effects. cc:: CC: Fredi Lemos MD Review of Systems ROS Status of ROS 10 or more systems reviewed and unremarkable except as noted in history and below Meds Home Medications and Allergies Home Medications ?Medication ?Instructions ?Recorded ?Confirmed ?Type propranolol 40 mg tablet 40 mg PO DAILY 05/07/25 05/07/25 History Allergies Allergy/AdvReac Type Severity Reaction Status Date / Time No Known Drug Allergies Allergy Verified 05/07/25 15:29 Exam Narrative Exam Narrative: Psych-alert and oriented x 3. Attentive and appropriate, constitutionally normal, displays normal mood and affect per situation. There are no obvious deficits in memory, reasoning, or intellect.? Skin-no obvious rashes, bruising, erythema noted to the patient's area of pain.? Extremities- extremities are warm with minimal edema and palpable pulses. Lumbar-tenderness to palpation noted in the lumbar spine and paraspinal musculature. Pain is not elicited with flexion, extension, and lateral rotation of the lumbar spine. Range of motion is not diminished with these motions. Facet loading maneuvers are negative.? Strength-noted to be unremarkable with the exception of decreased strength rated at 4 out of 5 in bilateral quadriceps femoris. Sensory-no notable sensory deficits in the bilateral lower extremities to touch or pinprick in all dermatomal distributions with the exception to decreased sensation to the bilateral L4, 5 dermatomal distribution Coordination remains intact.? Gait remains non-antalgic. Assessment and Plan Assessment and Plan (1) Lumbar stenosis with neurogenic claudication: (2) Disc displacement, lumbar: Plan 35yom who presents for evaluation. failed conservative measures, as noted. imaging reviewed, as noted. given symptoms and imaging, prudent to attempt bilateral l4-5 tfesi x2 under fluoroscopic guidance. he is in agreement with this plan. meds reviewed, no changes. follow up after procedure.
== END 2025-05-07 14:24 | disposition home or self-care (01) ==
LOC: PM 14:24
PROVIDERS: PCP Family Medicine; Visit Provider Anesthesiology
DX: M48.062 Spinal stenosis, lumbar region with neurogenic claudication (principal); M51.26 Other intervertebral disc displacement, lumbar region
CPT/HCPCS: G0463

== ENCOUNTER 2025-05-14 06:44 | Day surgery (SDC) | payer BC, SELFPAY ==
--- OUTSIDE RECORDS SUMMARY | 2017-09-23 07:33 | XMS_ITS | Continuity of Care Document ---
Author Organization [facility] Address [address] [place] [address] Phone Care Team Providers Care Shearing Machine Feeder Name Role Phone Edwardo Strong Unavailable Unavailable Allergies, Adverse Reactions, Alerts Substance Reaction Status Criticality No Known Allergies Active No Inform ation Medications Medication Instructions Dosage Effective Dates (start - stop) Status Comments No Drug Therapy Prescribed Problems Condition Type Effective Dates (start - stop) Clini susan Status Comments No Known Problems Procedures Procedure Date OFFICE/OUTPATIENT VISIT, [facility] OFFICE/OUTPATIENT VISIT, [facility] Advance Directives Directive Yes / No Effective Date File Name No Information Encounters Encounter Description Practice Location Reason(s) For Visit Diagnoses Date Provider Providers Copied on Encounter [facility], [address], [place], [id number], [place] tel:[phone] [facility] No Information Mar Denis. [address], [place], [id number], [place]. tel:[phone] OFFICE/OUTPAT IENT VISIT, [facility], [address], [place], [id number], [place] tel:[phone] [facility] back pain (chief complaint) Back painLocalized swelling, mass and lump, trunk Marshal Hankins. [address], [place], [id number], [place]. tel:[phone] OFFICE/OUTPAT IENT VISIT, [facility], [address], [place], [id number], tel:[phone] [facility] sinus problems (chief complaint) Acute sinusitis, unspecified Marshal Hankins. [address], [place], [id number], [place]. tel:[phone] Family History Family Member Type Diagnosis Age At Onset Mother Problem (finding) Alive and well Father Problem (finding) Alive and well Payers Payer name Insurance type Covered constitution party ID Authoriza tion(s) No Information Social [...]
--- OUTSIDE RECORDS SUMMARY | 2025-01-23 05:30 | XMS_ITS ---
Author Organization [facility] vices Address [address] [place], [place] [address], [place] [id number] Care Team Providers Care Substance Abuse Nurse Name Role Phone Maynor Robles Unavailable [phone] REASON FOR VISIT Prophy (A)(35) Encounters Encounter Location Date Provider Diagnosis Dental Main [address] [place], [place] [id number] 01/23/2025 Maynor Robles Plan Of Treatment No Information Progress Notes * Conrad ROBISONDOB: 0 (35 yo M)Acc No.[id number]:01/23/2025 Patient: Conrad ORDONEZ Provider: Ammy Robles DDS :1990 A ge:35 Y S ex:Male Date:01/23/2025 Address:[address] [place], [place] [id number] Subjective: * Chief Complaints: * 1 . Prophy (A)(35). * Medical History: Objective: * Vitals: Assessment: Plan: * Treatment: * Billing Information: * Visit Code: * Procedure Codes: * Electronic signature of Ana Robles DDS on 05/14/2025 at 06:46 AM EDT Sign off status: Pending * Provider: Ammy Robles DDS Date: 01/23/2025 Generated for Christie moreno/Shree/Lenoreitting on: 05/14/2025 06:46 AM EDT
--- OUTSIDE RECORDS SUMMARY | 2025-05-14 06:46 | XMS_ITS | Encounter Summary ---
Author Organization [facility] Address [address] [facility] [place] [address] Care Team Providers Care Farm Manager Name Role Phone Tomy Kelly MD Primary Care Provider [phone] Bryn Gibson MD Unavailable Encounter Details Date Type Department Care Team (Late st Contact Info) Description 08/14/2024 [facility] [place] [facility] 112 [facility] 110 [place] [address] Tomy Kelly MD 112 [facility] 110 [place] [address] Social History Tobacco Use Types Packs/Day Years [...] often do you attend chur ch or buddhist services? Never 07/13/2023 Do you belong to any clubs o r organizations such as nondenominational groups, unions, fraternal or athletic groups, or [...] care, and heating? Not very hard 07/13/2023 [facility] of Occupat ional Health - [...] Visit [facility] [place] [address] [facility] 110 [place] [address] Naomi Duggan PA [address] [facility] 110 [place] [address] documented as of this encounter Visit Diagnoses Not on filedocumented in this encounter Care Teams Farm Manager Relationship Specialty Start Date End Date Tomy Kelly MD [address] [facility] [address] [place] [address] PCP - General Family Medicine 02/02/23 Bryn Gibson MD [address] [facility] [address] [place] [address] PCP - Yadiel Commercial 09/27/23 documented as of this encounter
--- OUTSIDE RECORDS SUMMARY | 2025-05-14 06:46 | XMS_ITS | Encounter Summary ---
Author Organization [facility] Address [address] [place] [address] Care Team Providers Care Building Admin Name Role Phone Tomy Kelly MD Primary Care Provider [phone] Bryn Gibson MD Unavailable [phone] Encounter Details Date Type Department Care Team (Late st Contact Info) Description 10/03/2024 Abstract [facility] [place] [facility] 112 [facility] 110 [place] [address] Tomy Kelly MD 112 [facility] 110 [place] [address] Social History Tobacco Use Types Packs/Day Years [...] often do you attend chur ch or rastafari services? Never 07/13/2023 Do you belong to any clubs o r organizations such as jehovah's witness groups, unions, fraternal or athletic groups, or [...] care, and heating? Not very hard 07/13/2023 [facility] of Occupat ional Health - Occupational Stress [...] Visit [facility] [place] López [address] [facility] 110 [place] [address] Naomi Duggan PA [address] [facility] 110 [place] [address] documented as of this encounter Visit Diagnoses Not on filedocumented in this encounter Care Teams Building Admin Relationship Specialty Start Date End Date Tomy Kelly MD [address] [facility] [address] [place] [address] PCP - General Family Medicine 02/02/23 Bryn Gibson MD [address] [facility] [address] [place] [address] PCP - Yadiel Commercial 09/27/23 documented as of this encounter
--- OUTSIDE RECORDS SUMMARY | 2025-05-14 06:46 | XMS_ITS | Encounter Summary ---
Author Organization [facility] Address [address] [facility] [place] [address] Care Team Providers Care Booster Operator Name Role Phone Tomy Kelly MD Primary Care Provider [phone] Bryn Gibson MD Unavailable [phone] Encounter Details Date Type Department Care Team (Late st Contact Info) Description 07/13/2023 Orders Only [facility] [place] [facility] [address] [place] [address] [place] [address] A, Unknown Practice [address] [phone] Social History Tobacco Use Types Packs/Day Years [...] often do you attend chur ch or judaism services? Never 07/13/2023 Do you belong to any clubs o r organizations such as presybeterian groups, unions, fraternal or athletic groups, or [...] care, and heating? Not very hard 07/13/2023 [facility] of Occupat ional Health - Occupational [...] place to sleep or slept in a assisted (including now)? No 07/13/2023 Sex and Gender [...] [address] [facility] 110 [place] [address] Naomi Duggan PA [address] [place] 110 [place] [address] documented as of this encounter Procedures Procedure [...] on filedocumented in this encounter Care Teams Booster Operator Relationship Specialty Start Date End Date Tomy Kelly MD [address] [facility] 110 [place] [address] PCP - General Family Medicine 02/02/23 Bryn Gibson MD [address] [facility] 110 [place] [address] PCP - Yadiel Commercial 09/27/23 documented as of this encounter
--- OUTSIDE RECORDS SUMMARY | 2025-05-14 06:46 | XMS_ITS | Encounter Summary ---
Author Organization [facility] Address [address] [facility] [place] [address] Care Team Providers Care Network Control Operator Name Role Phone Tomy Kelly MD Primary Care Provider [phone] Bryn Gibson MD Unavailable [phone] Encounter Details Date Type Department Care Team (Late st Contact Info) Description 11/08/2023 Abstract [facility] [place] [facility] 112 [facility] 110 [place] [address] Tomy Kelly MD 112 [facility] 110 [place] [address] Social History Tobacco Use Types Packs/Day Years [...] often do you attend chur ch or lutheran services? Never 07/13/2023 Do you belong to [...] care, and heating? Not very hard 07/13/2023 [facility] Questionnaire Answer Date [...] Visit [facility] [place] [address] [facility] 110 [place] [address] Naomi Duggan PA [address] [facility] 110 [place] [address] documented as of this encounter Visit Diagnoses Not on filedocumented in this encounter Care Teams Network Control Operator Relationship Specialty Start Date End Date Tomy Kelly MD [address] [facility] [address] [place] [address] PCP - General Family Medicine 02/02/23 Bryn Gibson MD [address] [place] [address] [place] [address] PCP - Radar [employer] Commercial 09/27/23 documented as of this encounter
--- OUTSIDE RECORDS SUMMARY | 2025-05-14 06:46 | XMS_ITS | Patient Health Record ---
Author Organization [facility] Address [address] [place] [id number] Care Team Providers Care Human Services Professional Name Role Phone Margaret Maynor Unavailable [phone] Allergies No Known Allergies Reason For Referral No Information Medications Medication SIG (Take, Route, Fr equency, Duration) Notes Start Date End Date Status Propranolol HCl 40 MG TAKE 1 TABLET BY M OUTH IN THE MORNING Oral; Duration: 30 Days Active Social History Tobacco Use: Social History Observation Description Date Details (start date - stop date) Current Smoker NA - NA Tobacco Control (Standard) Question Answer Notes Tobacco use: Current smoker How many cigarettes a day do you smoke? 6-10 Problems Problem Type SNOMED Code ICD Code Onset Dates Problem Status W/U Status Risk Notes Problem Body mass index 30.00 to 34.99 (36867451514 4107) Body mass index [BMI] 33.0-33.9, adult (Z68.33) Active confirmed Problem Tobacco user (502377381) Cigarette nicotine dependence without complication (F17.210) Active confirmed Problem Obese class I (45597313821 4107) BMI 33.0-33.9,adult (Z68.33) Active confirmed Vital Signs Heart Rate 59 /min 02/16/2025 Height-cm 180.34 cm 02/16/2025 Blood pressure diastolic 83 mm Hg 02/16/2025 Weight-kg 108.86 kg 02/16/2025 Height 71 in 02/16/2025 Blood pressure systolic 122 mm Hg 02/16/2025 Weight 240 lbs 02/16/2025 BMI 33.47 kg/m2 02/16/2025 Encounters Encounter Location Date Provider Diagnosis [facility] [address] [place], [place] [id number] 10/05/2024 Maynor Robles BMI 33.0-33.9,adul t Z68.33 ; Dietary counseling Z71.3 ; Exercise counseling Z71.82 ; Encounter for screening for dental disorders Z13.84 ; Dental caries into dentine K02.62 and Encounter for dental examination and cleaning with abnormal findings Z01.21 [facility] [address] [place], [place] [id number] 01/12/2025 Maynor Westlos BMI 33.0-33.9,adul t Z68.33 and Dental caries into dentine K02.62 [facility] [address] [place], [place] [id number] 02/16/2025 Maynor Robles Body mass index [B AZ] 33.0-33.9, adult Z68.33 ; Encounter for dental examination and cleaning without abnormal findings Z01.20 ; Encounter for dental examination and cleaning with abnormal findings Z01.21 ; Cigarette nicotine dependence without complication F17.210 ; Dietary counseling Z71.3 and Exercise counseling Z71.82 Assessments Encounter Date Diagnosis (ICD Code) Assessment Notes Treatment Notes Treatment Clinical Notes Section Notes 02/16/2025 Body mass index [BMI] 33.0-33.9, adult (ICD-10 - Z68.33) 10/05/2024 BMI 33.0-33.9,adult (ICD-10 - Z68.33) 01/12/2025 BMI 33.0-33.9,adult (ICD-10 - Z68.33) 01/12/2025 Dental caries into dentine (ICD-10 - K02.62) 10/05/2024 Dietary counseling (ICD-10 - Z71.3) 02/16/2025 Encounter for dental examination and cleaning without abnormal findings (ICD-10 - Z01.20) 02/16/2025 Encounter for dental examination and cleaning with abnormal findings (ICD-10 - Z01.21) 10/05/2024 Exercise counseling (ICD-10 - Z71.82) 10/05/2024 Encounter for screening for dental disorders (ICD-10 - Z13.84) 02/16/2025 Cigarette nicotine dependence without complication (ICD-10 - F17.210) Patient provided with [id number] phone line. 02/16/2025 Dietary counseling (ICD-10 - Z71.3) 10/05/2024 Dental caries into dentine (ICD-10 - K02.62) 10/05/2024 Encounter for dental examination and cleaning with abnormal findings (ICD-10 - Z01.21) 02/16/2025 Exercise counseling (ICD-10 - Z71.82) Plan Of Treatment No Information Insurance Providers Payer Name Payer Address Payer Phone Subscriber Number Group Number Insured Name Patient Relationship to Insured Coverage Start Date Coverage End Date [facility] [address] [place], [place] [id number] Yamila Horn Spouse - patient is the spouse of the insured 4 Medical (General) History Medical History History ICD Code Hypertension
--- OUTSIDE RECORDS SUMMARY | 2025-05-14 06:46 | XMS_ITS | Encounter Summary ---
Author Organization [facility] Address [address] [facility] [place] [address] Care Team Providers Care Turfgrass Technician Name Role Phone Tomy Kelly MD Primary Care Provider [phone] Bryn Gibson MD Unavailable [phone] Encounter Details Date Type Department Care Team (Late st Contact Info) Description 10/23/2024 [facility] [place] [facility] [address] [facility] 110 [place] [address] Tomy Kelly MD [address] [facility] 110 [place] [address] Social History Tobacco Use Types Packs/Day Years [...] often do you attend chur ch or scientologist services? Never 07/13/2023 Do you belong to any clubs o r organizations such as sabianism groups, unions, fraternal or athletic groups, or [...] care, and heating? Not very hard 07/13/2023 [facility] of Occupat ional Health - [...] place to sleep or slept in a snf (including now)? No 07/13/2023 Sex and Gender [...] [address] 110 [place] [address] Naomi Duggan PA [address] [facility] 110 [place] [address] documented as of this encounter Visit Diagnoses Not on filedocumented in this encounter Care Teams Turfgrass Technician Relationship Specialty Start Date End Date Tomy Kelly MD [address] [facility] [address] [place] [address] PCP - General Family Medicine 02/02/23 Bryn Gibson MD [address] [facility] [address] [place] [address] PCP - Yadiel Commercial 09/27/23 documented as of this encounter
--- OUTSIDE RECORDS SUMMARY | 2025-05-14 06:46 | XMS_ITS | Clinical Summary ---
Author Organization [facility] Address [address] [facility] [place] [address] Care Team Providers Care Poultry Tender Name Role Phone Tomy Kelly MD Primary Care Provider Bryn Gibson MD Unavailable [phone] Allergies No known active allergies Medications [...] 30 tablet 04/16/20 25 025 HYDROcodone-acetam inophen ([place]) 5-325 MG tabletIndications: Degeneration of intervertebral disc of lumbar region with discogenic back pain and lower extremity pain Take 1 tablet by mouth every 6 (six) hours if needed for severe pain for up to 5 days 20 tablet 04/30/20 25 025 Active Problems Problem Noted Date Diagnosed Date Degeneration of intervertebr al disc of lumbar region with discogenic back pain and lower extremity pain 04/12/2025 Lumbar paraspinal muscle spasm 08/09/2024 Primary hypertension 09/07/2023 Shoulder joint pain 07/14/2023 Tobacco dependence 07/14/2023 Encounters Date Type Department Care Team Description 04/30/2025 Telephone [facility] [place] [facility] [address] [facility] [address] [place] [address] Tomy Kelly MD 04/25/2025 Results Follow-Up [facility] [place] [facility] [address] [facility] 110 [place] [address] Naomi Duggan PA MR lumbar spine wo contrast 04/24/2025 1:30 PM EDT Ancillary Procedure [facility] [address] [place] [address] [place] [phone] Degeneration of intervertebral disc of lumbar region with discogenic back pain and lower extremity pain 04/24/2025 Travel 04/16/2025 Telephone [facility] [place] [facility] [address] [facility] [address] [place] [address] Tomy Kelly MD 04/12/2025 Telephone [facility] [place] [facility] [address] [place] [address] [place] [address] Naomi Duggan PA 04/11/2025 4:00 PM EDT Office Visit [facility] [place] [facility] [address] [place] [address] [place] [address] Naomi Duggan PA Chronic bilateral low back pain with left-sided sciatica (Primary Dx) 04/11/2025 2:00 PM EDT Ancillary Procedure [facility] [address] [place] [address] [place] [address] Chronic bilateral low back pain with left-sided sciatica 04/11/2025 1:30 PM EDT Ancillary Procedure [facility] [address] [place] [place] [address] Persistent cough for 3 weeks or longer [...] often do you attend chur ch or sikhism services? Never 07/13/2023 Do you belong to any clubs o r organizations such as episcopalian groups, unions, fraternal or athletic groups, or [...] Recorded Patient Health Questionnaire-2 Score 0 04/11/2025 [facility] of Occupat ional Health - Occupational Stress [...] 5:00 PM EDT [facility] [place] [facility] 112 [facility] 110 [place] [address] Naomi Duggan PA 112 [facility] 110 [place], [place] [phone] Health Maintenance Due Date Last Done Comments [...] discussed. ELECTRONICALLY SIGNED BY: Bryn Montana MD us Naomi PERDOMO IMG MRI PROCEDURES Final Resul t * XR lumbar spine 4+ views w flexion extension (04/11/2025 4:52 PM EDT) Anatomical Region Laterality Modality Spine, L-spine Radiographic Magalie ging 04/12/2025 10:4 4 AM EDT Impressions 04/12/2025 10:45 AM EDT Degenerative changes lower lumbar spine. ELECTRONICALLY SIGNED BY: Bryn Montana MD Narrative 04/12/2025 10:45 AM EDT EXAMINATION/TECHNIQUE: XR LUMBAR [...] intact. Soft tissues unremarkable. Procedure Note Bryn Montana MD - 04/12/2025 EXAMINATION/TECHNIQUE: XR LUMBAR SPINE [...] findings. ELECTRONICALLY SIGNED BY: Bryn Montana MD Narrative 04/12/2025 10:45 AM EDT EXAMINATION/TECHNIQUE: XR CHEST [...] No acute radiographic findings. ELECTRONICALLY SIGNED BY: rByn Montana MD Naomi PERDOMO IMG XR PROCEDURES Final Result from Last 3 Months Insurance [facility] Care Teams Poultry Tender Relationship Specialty Start Date End Date Tomy Kelly MD [address] [facility] 110 [place] [address] PCP - General Family Medicine 02/02/23 Bryn Gibson MD [address] [facility] 110 [place] [address] PCP - Yadiel Montague 09/27/23
--- OUTSIDE RECORDS SUMMARY | 2025-05-14 06:46 | XMS_ITS | Encounter Summary ---
Author Organization [facility] Address [address] [place] [address] Care Team Providers Care Health Services Administrator Name Role Phone Tomy Winkler MD Primary Care Provider [phone] Bryn Gibson MD Unavailable [phone] Encounter Details Date Type Department Care Team (Late st Contact Info) Description 07/10/2023 Clinisync Result Encounter [facility] External Department Unsolicited Tomy Winkler MD [address] [place] [address] [place] [address] Social History Tobacco Use Types Packs/Day Years [...] often do you attend chur ch or mandaen services? Never 07/13/2023 Do you belong to any clubs o r organizations such as congregational groups, unions, fraternal or athletic groups, or [...] care, and heating? Not very hard 07/13/2023 [facility] of Occupat ional Health - Occupational Stress [...] place to sleep or slept in a jail (including now)? No 07/13/2023 Sex and Gender [...] [place] L[facility]pez [address] [place] [address] [place] [address] Naomi Duggan PA [address] [place] [address] [place] [address] documented as of this encounter Procedures Procedure Name Priority Date/Time Associated Diagnosis Comments CT HEAD/BRAIN WO 07/10/2023 2:28 PM EDT documented in this encounter Results * CT HEAD/BRAIN WO (07/10/2023 2:28 PM EDT) Anatomical Region Laterality Modality Radiographic Magalie ging 07/10/2023 2:28 PM EDT Narrative 07/10/2023 2:28 PM EDT [address] [address] [address] Scan Report Signed Patient: CONRAD ROBISON MR#: [id number] : 1990 Acct:[id number] Age/Sex: 33 / M ADM Date: 07/10/23 Loc: CT Attending Dr: TOMY WINKLER Ordering Physician: TOMY WINKLER Date of Service: 07/10/23 Procedure(s): CT head/brain wo con Accession Number(s): [id number] cc: TOMY WINKLER [address] [address] Patient Name: CONRAD ROBISON MRN: [id number] date: 1990 Sex: M Assigned Patient Location: CT Current Patient Location: CT Accession/Order Number: [id number] Exam Date: 07/10/2023 08:15 Report Date: 07/10/2023 [...] Signed By: 07/10/23 1431 DD/ 1428 TD/TT: Saturator Tender: Procedure Note Radiology, Radiologist, MD - 07/12/2023 [place] [address] CT Scan Report Signed Patient: CONRAD ROBISON MMR#: [id number] : 1990Acct:[id number] Age/Sex: 33 / MADM Date: 07/10/23 Loc: CT Attending Dr: TOMY WINKLER Ordering Physician: TOMY WINKLER Date of Service: 07/10/23 Procedure(s): CT head/brain wo con Accession Number(s): [id number] cc: TOMY WINKLER [address] [address] Patient Name: CONRAD ROBISON MRN: [id number] date: 1990 Sex: M Assigned Patient Location: CT Current Patient Location: CT Accession/Order Number: [id number] Exam Date: 07/10/2023 08:15 Report Date: 07/10/2023 [...] M.D. Signed By:07/10/23 1431 DD/ 1428 TD/TT: Saturator Tender: Tomy Winkler MD IMG XR PROCEDURES Final Result documented in this encounter Visit Diagnoses Not on filedocumented in this encounter Care Teams Health Services Administrator Relationship Specialty Start Date End Date Tomy Winkler MD [address] [facility] 110 [place] [address] PCP - General Family Medicine 02/02/23 Bryn Gibson MD [address] [facility] 110 [place] [address] PCP - Yadiel Montague 09/27/23 documented as of this encounter
--- OUTSIDE RECORDS SUMMARY | 2025-05-14 06:46 | XMS_ITS | Clinical Summary ---
Author Organization [facility] Address [id number] [address] [place] [address] Care Team Providers Care Thermal Engineer Name Role Phone Unavailable Primary Care Provider [...] on cytospin preps. 02/17/2025 10:15 AM EDT [facility] Semen Penile structure / Unknown 02/16/2025 1:40 PM EDT 02/16/2025 3:01 PM EDT Chris Moise MD BODY FLUIDS AND STOOL S ORDERABLES Final Result [facility] [address] [place] [address], from Last [address] [place] [address]
--- OUTSIDE RECORDS SUMMARY | 2025-05-14 06:46 | XMS_ITS | Encounter Summary ---
Author Organization [facility] Address [address] [facility] [place] [address] Care Team Providers Care Automatic Print Developer Name Role Phone Tomy Kelly MD Primary Care Provider [phone] Bryn Gibson MD Unavailable [phone] Encounter Details Date Type Department Care Team (Late st Contact Info) Description 07/14/2023 Abstract [facility] [place] [facility] 112 [facility] 110 [place] [address] Naomi Duggan PA 112 [facility] 110 [place] [address] Social History Tobacco Use Types Packs/Day Years [...] often do you attend chur ch or sabianist services? Never 07/13/2023 Do you belong to any clubs o r organizations such as christian groups, unions, fraternal or athletic groups, or [...] care, and heating? Not very hard 07/13/2023 [facility] Occupat ional Health - Occupational [...] place to sleep or slept in a skilled nursing (including now)? No 07/13/2023 Sex and Gender [...] Visit [facility]S [place] López [address] [facility] 110 [place] [address] Naomi Duggan PA [address] [facility] 110 [place] [address] documented as of this encounter Visit Diagnoses Not on filedocumented in this encounter Care Teams Automatic Print Developer Relationship Specialty Start Date End Date Tomy Kelly MD [address] [facility] 110 [place] [address] PCP - General Family Medicine 02/02/23 Bryn Gibson MD [address] [facility] 110 [place] [address] PCP - [employer] 09/27/23 documented as of this encounter
[2025-05-14 07:00] VITALS: BP 157/95; PULSE 80; TEMP 36.7; O2SAT 98
[2025-05-14 07:52] VITALS: BP 180/116; PULSE 66; O2SAT 100
[2025-05-14] MEDS: IOHEXOL 240 MG/ML - 10 ML VIAL 24 MG INJ (07:53)
[2025-05-14] MEDS: 0.9 % SODIUM CHLORIDE 10 ML SYRINGE - SALINE FLUSH INJ (07:53)
[2025-05-14] MEDS: BUPIVACAINE HCL 0.25% PF 25 MG/10 ML VIAL INJ (07:53)
[2025-05-14] MEDS: LIDOCAINE HCL 2% 400 MG/20 ML MDV 3 ML INJ (07:53)
[2025-05-14 07:54] VITALS: BP 168/101; PULSE 70; O2SAT 100
[2025-05-14] MEDS: METHYLPREDNISOLONE ACETATE 80 MG/ML VIAL INJ (07:54)
--- NOTE | 2025-05-14 07:55 | W.PM.PROCNOT ---
Date of procedure: 05/14/25 Pre-op diagnosis: Pain due to lumbar stenosis with neurogenic claudication Post-op diagnosis: same as pre-op Procedure: Procedure: Bilateral L4-5 transforaminal epidural steroid injection Medications: Bupivacaine 0.25% 2cc, lidocaine 2% 1cc, depomedrol 80mg The patient was seen and examined in the preoperative holding area.? Informed consent was obtained and placed on the chart.? Patient was brought to the medical procedure unit and placed in the prone position where a timeout was completed verifying the correct patient, procedure site, position, and planned special equipment using sterile aseptic technique.? Under direct fluoroscopic visualization a 25-gauge Quincke tipped spinal needle was advanced at level left L4-5 to the designated neural foramen where contrast dye was injected to show adequate spread.? There was no evidence of vascular or adverse uptake.? Epidural spread was appreciated.? The above-mentioned injectate was then placed in a 1.5 mL aliquot preceded by negative aspiration.? The needle was removed. The same procedure, at the same level, was completed on the opposite side. ? Patient was taken to the postprocedural recovery area and monitored for an appropriate length of time before found suitable for discharge in the accompaniment of a responsible adult. Anesthesia: Local Surgeon: Fredi Lemos Pathology: none sent Condition: stable Disposition: no change
== END 2025-05-14 08:00 | disposition home or self-care (01) ==
LOC: SURGOUT 06:44
PROVIDERS: PCP Family Medicine; Visit Provider Anesthesiology
DX: M48.062 Spinal stenosis, lumbar region with neurogenic claudication (principal); M54.50 Low back pain, unspecified
CPT/HCPCS: 64483; J0665; J1010; Q9966

== ENCOUNTER 2025-05-24 07:37 | Outpatient (OUT) | payer BC, SELFPAY ==
--- OUTSIDE RECORDS SUMMARY | 2017-09-23 07:33 | XMS_ITS | Continuity of Care Document ---
Author Organization [facility] Address [address] [place] [address] Phone Care Team Providers Care Occupational Therapy Program Director Name Role Phone Edwardo Strong Unavailable Unavailable Allergies, Adverse Reactions, Alerts Substance Reaction Status Criticality No Known Allergies Active No Inform ation Medications Medication Instructions Dosage Effective Dates (start - stop) Status Comments No Drug Therapy Prescribed Problems Condition Type Effective Dates (start - stop) Clini susan Status Comments No Known Problems Procedures Procedure Date OFFICE/OUTPATIENT VISIT, [facility] OFF[facility]PATIENT V[facility]IT, [facility] Advance Directives Directive Yes / No Effective Date File Name No Information Encounters Encounter Description Practice Location Reason(s) For Visit Diagnoses Date Provider Providers Copied on Encounter [facility], [address], [place], [id number], [place] tel:[phone] [facility] No Information Mar Denis. [address], [place], [id number], [place]. tel:[phone] OFFICE/OUTPAT IENT VISIT, [facility], [address], [place], [id number], [place] tel:[phone] [facility] back pain (chief complaint) Back painLocalized swelling, mass and lump, trunk Marshal Hankins. [address], [place], [id number], [place]. tel:[phone] OFFICE/OUTPAT IENT VISIT, [facility], [address], [place], [id number], tel:[phone] [facility] sinus problems (chief complaint) Acute sinusitis, unspecified Marshal Hankins. [address], [place], [id number], [place]. tel:[phone] Family History Family Member Type Diagnosis Age At Onset Mother Problem (finding) Alive and well Father Problem (finding) Alive and well Payers Payer name Insurance type Covered green party ID Authoriza tion(s) No Information Social History Type Description Quantity Date Captured Comments Sex Male Smoking Status No Information Sexual Orientation Don't Know Gender Identity Male Chief Complaint And Reason For Visit No Information Reason For Referral Reason For Referral No Information Plan Of Treatment Date Type Action Status Referral Ordered: Chest X-Ray Frontal & Lateral 2 Views ordered Referral Ordered: US XTR NON-VASC LMTD Right upper back, area of pain ordered History Of Present Illness Encounter Date Complaint History Of Prese nt Illness back pain Additional infor mation: Pt here with back pain that started 4-5 months ago. Went to a massage therapist & was told he has a knot under his right shoulder blade. LOUANN Guy. sinus problems Has had cold-lik e symptoms for approx. 3 months, off and on. Head congestion, greenish drainage from throat, occas fever, dyspnea. Feels better now, last week (when appt scheduled) was the worst. Hui Vizcarra R.N. Functional Status Date Functional Assessmen t No Information Medications Administered Medication Instructions Dosage Effective Dates (start - stop) Status Comments No Drug Therapy Prescribed Instructions Date Instruction Additional Infor mation No Information Assessments Type Assessment Date No Information Patient Care Teams Name Effective Dates (start - stop) Status Members No Information
--- OUTSIDE RECORDS SUMMARY | 2025-01-23 05:30 | XMS_ITS ---
Author Organization Replaced By [facility] vices Address [address] [place], [place] [address], [place] [id number] Care Team Providers Care Utility Bag Assembler Name Role Phone Maynor Robles Unavailable [phone] REASON FOR VISIT Prophy (A)(35) Encounters Encounter Location Date Provider Diagnosis [facility] Main [address] [place], [place] [id number] 01/23/2025 Maynor Robles Plan Of Treatment No Information Progress Notes * Conrad ROBISONDOB: 0 (35 yo M)Acc No.[id number]:01/23/2025 Patient: Conrad ORDONEZ Provider: Ammy Robles DDS :1990 A ge:35 Y S ex:Male Date:01/23/2025 Address:[address] [place], [place] [id number] Subjective: * Chief Complaints: * 1 . Prophy (A)(35). * Medical History: Objective: * Vitals: Assessment: Plan: * Treatment: * Billing Information: * Visit Code: * Procedure Codes: * Electronic signature of Ana Robles DDS on 05/24/2025 at 07:39 AM EDT Sign off status: Pending * Provider: Ammy Robles DDS Date: 01/23/2025 Generated for Christie moreno/Shree/Lenoreitting on: 05/24/2025 07:39 AM EDT
--- OUTSIDE RECORDS SUMMARY | 2025-05-24 07:39 | XMS_ITS | Patient Health Record ---
Author Organization [facility] Address [address] [place] [id number] Care Team Providers Care History Faculty Member Name Role Phone Maynor Robles Unavailable [phone] Allergies No Known Allergies Reason For Referral [...] Status Risk Notes Problem Body mass index [BMI] 33.0-33.9, adult (Z68.33) Active confirmed Problem Tobacco user (187600197) Cigarette nicotine dependence without complication (F17.210) Active confirmed Problem BMI 33.0-33.9,adult (Z68.33) Active confirmed Vital Signs Heart Rate 59 /min 02/16/2025 Blood pressure diastolic 83 mm Hg 02/16/2025 Height-cm 180.34 cm 02/16/2025 Weight-kg 108.86 kg 02/16/2025 Height 71 in 02/16/2025 Blood pressure systolic 122 mm Hg 02/16/2025 Weight 240 lbs 02/16/2025 BMI 33.47 kg/m2 02/16/2025 Encounters Encounter Location Date Provider Diagnosis [facility] [address] [place], [place] [id number] 10/05/2024 Maynor Robles BMI 33.0-33.9,adul t Z68.33 ; Dietary counseling Z71.3 ; Exercise counseling Z71.82 ; Encounter for screening for dental disorders Z13.84 ; Dental caries into dentine K02.62 and Encounter for dental examination and cleaning with abnormal findings Z01.21 [facility] [address] [place], [place] [id number] 01/12/2025 Maynor Robles BMI 33.0-33.9,adul t Z68.33 and Dental caries into dentine K02.62 [facility] [address] [place], [place] [id number] 02/16/2025 Maynor Robles Body mass index [B NM] 33.0-33.9, adult Z68.33 ; Encounter for dental examination and cleaning without abnormal findings Z01.20 ; Encounter for dental examination and cleaning with abnormal findings Z01.21 ; Cigarette nicotine dependence without complication F17.210 ; Dietary counseling Z71.3 and Exercise counseling Z71.82 Assessments Encounter Date Diagnosis (ICD Code) Assessment Notes Treatment Notes Treatment Clinical Notes Section Notes 10/05/2024 BMI 33.0-33.9,adult (ICD-10 - Z68.33) 01/12/2025 BMI 33.0-33.9,adult (ICD-10 - Z68.33) 02/16/2025 Body mass index [BMI] 33.0-33.9, adult (ICD-10 - Z68.33) 10/05/2024 Dietary counseling (ICD-10 - Z71.3) 01/12/2025 Dental caries into dentine (ICD-10 - K02.62) 02/16/2025 Encounter for dental examination and cleaning without abnormal findings (ICD-10 - Z01.20) 02/16/2025 Encounter for dental examination and cleaning with abnormal findings (ICD-10 - Z01.21) 10/05/2024 Exercise counseling (ICD-10 - Z71.82) 02/16/2025 Cigarette nicotine dependence without complication (ICD-10 - F17.210) Patient provided with [id number] phone line. 10/05/2024 Encounter for screening for dental disorders (ICD-10 - Z13.84) 10/05/2024 Dental caries into dentine (ICD-10 - K02.62) 02/16/2025 Dietary counseling (ICD-10 - Z71.3) 10/05/2024 Encounter for dental examination and cleaning with abnormal findings (ICD-10 - Z01.21) 02/16/2025 Exercise counseling (ICD-10 - Z71.82) Plan Of Treatment No Information Insurance Providers Payer Name Payer Address Payer Phone Subscriber Number Group Number Insured Name Patient Relationship to Insured Coverage Start Date Coverage End Date Asmita [facility] [address] [place], [place] [phone] [id number] Yamila Horn Spouse - patient is the spouse of the insured 4 Medical (General) History Medical History History ICD Code Hypertension
--- OUTSIDE RECORDS SUMMARY | 2025-05-24 07:39 | XMS_ITS | Clinical Summary ---
Author Organization [facility] Healthcare Address [address] [facility] [place] [address] Care Team Providers Care Fly Finisher Name Role Phone Tomy Kelly MD Primary Care Provider [phone] Bryn Gibson MD Unavailable [phone] Allergies No known active allergies Medications [...] 30 tablet 04/16/20 25 025 HYDROcodone-acetam inophen (Sumerco) 5-325 MG tabletIndications: Degeneration of intervertebral disc [...] Team Description 04/30/2025 Telephone [facility] [place] [facility] [address] [facility] 110 [place] [address] Tomy Kelly MD 04/25/2025 Results Follow-Up [facility] [place] [facility] [address] [facility] 110 [place] [address] Naomi Duggan PA MR lumbar spine wo contrast 04/24/2025 1:30 PM EDT Ancillary Procedure [facility] [address] [place] [address] [place] [id number] Degeneration of intervertebral disc of lumbar region with discogenic back pain and lower extremity pain 04/24/2025 Travel 04/16/2025 Telephone [facility] [place] [facility] [address] [facility] [address] [place] [address] Tomy Kelly MD 04/12/2025 Telephone [facility] [place] [facility] [address] [place] [address] [place] [address] Naomi Duggan PA 04/11/2025 4:00 PM EDT Office Visit [facility] [place] [facility] [address] [place] [address] [place] [address] Naomi Duggan PA Chronic bilateral low back pain with left-sided sciatica (Primary Dx) 04/11/2025 2:00 PM EDT Ancillary Procedure [facility] [address] [place] [address] [place] [address] Chronic bilateral low back pain with left-sided sciatica 04/11/2025 1:30 PM EDT Ancillary Procedure [facility] [address] [place] [address] [place] [address] Persistent cough for 3 weeks or longer [...] often do you attend chur ch or advent services? Never 07/13/2023 Do you belong to any clubs o r organizations such as yazidism groups, unions, fraternal or athletic groups, or [...] Recorded Patient Health Questionnaire-2 Score 0 04/11/2025 [facility] Occupat ional Health - Occupational [...] 5:00 PM EDT Office Visit [facility] [place] [facility] [place] 112 [facility] 110 [place] [address] Naomi Duggan PA 112 [facility] 110 [place], [place] [phone] Health Maintenance Due Date Last Done Comments [...] Final Result from Last 3 Months Insurance [facility] Care Teams Fly Finisher Relationship Specialty Start Date End Date Tomy Kelly MD [address] [facility] 110 [place] [address] PCP - General Family Medicine 02/02/23 Bryn Gibson MD [address] [facility] 110 [place] [address] PCP - Yadiel Montague 09/27/23
--- OUTSIDE RECORDS SUMMARY | 2025-05-24 07:39 | XMS_ITS | Encounter Summary ---
Author Organization [facility] Address [address] [facility] [place] [address] Care Team Providers Care Roller Mill Tender Name Role Phone Tomy Kelly MD Primary Care Provider [phone] Bryn Gibson MD Unavailable [phone] Encounter Details Date Type Department Care Team (Late st Contact Info) Description 10/03/2024 Abstract [facility] [place] [facility] 112 [facility] 110 [place] [address] Tomy Kelly MD [address] [facility] 110 [place] [address] Social History Tobacco Use Types Packs/Day Years [...] often do you attend chur ch or baptism services? Never 07/13/2023 Do you belong to any clubs o r organizations such as mandaen groups, unions, fraternal or athletic groups, or [...] Visit [facility] [place] López [address] [facility] 110 [place] [address] Naomi Duggan PA [address] [facility] 110 [place] [address] documented as of this encounter Visit Diagnoses Not on filedocumented in this encounter Care Teams Roller Mill Tender Relationship Specialty Start Date End Date Tomy Kelly MD [address] [place] 110 [place] [address] PCP - General Family Medicine 02/02/23 Bryn Gibson MD [address] [place] [address] [place] [address] PCP - Y[employer]iel [employer] 09/27/23 documented as of this encounter
--- OUTSIDE RECORDS SUMMARY | 2025-05-24 07:39 | XMS_ITS | Clinical Summary ---
Author Organization [facility] tem Address [id number] [address] [place] [address] Care Team Providers Care Trackman Name Role Phone Unavailable Primary Care Provider Unavailabl e Social History Tobacco Use Types Packs/Day Years [...] 08/12/2019, 08/12/2019 [employer] Devices Not on file Insurance [employer]
--- OUTSIDE RECORDS SUMMARY | 2025-05-24 07:39 | XMS_ITS | Encounter Summary ---
Author Organization [facility] Address [address] [place] [address] Care Team Providers Care Industrial Hygenist Name Role Phone Tomy Winkler MD Primary Care Provider [phone] Bryn Gibson MD Unavailable [phone] Encounter Details Date Type Department Care Team (Late st Contact Info) Description 07/10/2023 Clinisync Result Encounter [facility] External Department Unsolicited Tomy Winkler MD [address] [place] [address] [place] [address] Social History Tobacco Use Types Packs/Day Years [...] often do you attend chur ch or adventist services? Never 07/13/2023 Do you belong to any clubs o r organizations such as pentecostalism groups, unions, fraternal or athletic groups, or [...] to sleep or slept in a senior living (including now)? No 07/13/2023 Sex and Gender [...] [place] López [address] [place] [address] [place] [address] Naomi Duggan PA [address] [place] [address] [place] [address] documented as of this encounter Procedures Procedure Name Priority Date/Time Associated Diagnosis Comments CT HEAD/BRAIN WO 07/10/2023 2:28 PM EDT documented in this encounter Results * CT HEAD/BRAIN WO (07/10/2023 2:28 PM EDT) Anatomical Region Laterality Modality Radiographic Magalie ging 07/10/2023 2:28 PM EDT Narrative 07/10/2023 2:28 PM EDT [address] [address] [address] Scan Report Signed Patient: CONRAD ROBISON MR#: [id number] : 1990 Acct:[id number] Age/Sex: 33 / M ADM Date: 07/10/23 Loc: CT Attending Dr: TOMY WINKLER Ordering Physician: TOMY WINKLER Date of Service: 07/10/23 Procedure(s): CT head/brain wo con Accession Number(s): [id number] cc: TOMY WINKLER [address] [address] Patient Name: CONRAD ROBISON MRN: [id number] date: 1990 Sex: M Assigned Patient Location: CT Current Patient Location: CT Accession/Order Number: [id number] Exam Date: 07/10/2023 08:15 Report Date: 07/10/2023 [...] Signed By: 07/10/23 1431 DD/ 1428 TD/TT: Certified Corporate Travel Executive: Procedure Note Radiology, Radiologist, MD - 07/12/2023 [place] [address] CT Scan Report Signed Patient: CONRAD ROBISON MMR#: [id number] : 1990Acct:[id number] Age/Sex: 33 / MADM Date: 07/10/23 Loc: CT Attending Dr: TOMY WINKLER Ordering Physician: TOMY WINKLER Date of Service: 07/10/23 Procedure(s): CT head/brain wo con Accession Number(s): [id number] cc: TOMY WINKLER [address] [address] Patient Name: CONRAD ROBISON MRN: [id number] date: 1990 Sex: M Assigned Patient Location: CT Current Patient Location: CT Accession/Order Number: [id number] Exam Date: 07/10/2023 08:15 Report Date: 07/10/2023 [...] M.D. Signed By:07/10/23 1431 DD/ 1428 TD/TT: Certified Corporate Travel Executive: Tomy Winkler MD IMG XR PROCEDURES Final Result documented in this encounter Visit Diagnoses Not on filedocumented in this encounter Care Teams Industrial Hygenist Relationship Specialty Start Date End Date Tomy Winkler MD [address] [facility] 110 [place] [address] PCP - General Family Medicine 02/02/23 Bryn Gibson MD [address] [email or web address] 110 [place] [address] PCP - Yadiel Montague 09/27/23 documented as of this encounter
--- OUTSIDE RECORDS SUMMARY | 2025-05-24 07:39 | XMS_ITS | Encounter Summary ---
Author Organization [facility] Address [address] [facility] [place] [address] Care Team Providers Care Transit Planning Director Name Role Phone Tomy Kelly MD Primary Care Provider [phone] Bryn Gibson MD Unavailable Encounter Details Date Type Department Care Team (Late st Contact Info) Description 07/14/2023 Abstract [facility] [place] [facility] 112 [facility] 110 [place] [address] Naomi Duggan, CONOR [address] [facility] 110 [place] [address] Social History Tobacco Use Types Packs/Day Years [...] often do you attend chur ch or druze services? Never 07/13/2023 Do you belong to any clubs o r organizations such as zoroastrian groups, unions, fraternal or athletic groups, or [...] care, and heating? Not very hard 07/13/2023 [facility] of Occupat ional Health - Occupational Stress [...] place to sleep or slept in a alf (including now)? No 07/13/2023 Sex and Gender [...] Visit [facility] [place] López [address] [facility] 110 [place] [address] Naomi Duggan PA [address] [facility] 110 [place] [address] documented as of this encounter Visit Diagnoses Not on filedocumented in this encounter Care Teams Transit Planning Director Relationship Specialty Start Date End Date Tomy Kelly MD [address] [facility] 110 [place] [address] PCP - General Family Medicine 02/02/23 Bryn Gibson MD [address] [facility] 110 [place] [address] PCP - [employer] 09/27/23 documented as of this encounter
--- OUTSIDE RECORDS SUMMARY | 2025-05-24 07:39 | XMS_ITS | Encounter Summary ---
Author Organization [facility] Address [address] [facility] [place] [address] Care Team Providers Care Data Processing Operator Name Role Phone Tomy Kelly MD Primary Care Provider [phone] Bryn Gibson MD Unavailable [phone] Encounter Details Date Type Department Care Team (Late st Contact Info) Description 10/23/2024 Abstract [facility] [place] [facility] 112 [facility] 110 [place] [address] Tomy Kelly MD [address] [facility] [facility] 110 [place] [address] Social History Tobacco Use Types Packs/Day Years [...] often do you attend chur ch or zoroastrian services? Never 07/13/2023 Do you belong to [...] place to sleep or slept in a detention (including now)? No 07/13/2023 Sex and Gender [...] Visit [facility]S [place] López [address] [facility] 110 [place] [address] Naomi Duggan PA [address] [facility] 110 [place] [address] documented as of this encounter Visit Diagnoses Not on filedocumented in this encounter Care Teams Data Processing Operator Relationship Specialty Start Date End Date Tomy Kelly MD [address] [place] [address] [place] [address] PCP - General Family Medicine 02/02/23 Bryn Gibson MD [address] [place] [address] [place] [address] PCP - Yadiel [employer] 09/27/23 documented as of this encounter
--- OUTSIDE RECORDS SUMMARY | 2025-05-24 07:39 | XMS_ITS | Encounter Summary ---
Author Organization [facility] Address [address] [facility] [place] [address] Care Team Providers Care Tester Rocket Engine Name Role Phone Tomy Kelly MD Primary Care Provider [phone] Bryn Gibson MD Unavailable [phone] Encounter Details Date Type Department Care Team (Late st Contact Info) Description 08/14/2024 Abstract [facility] [place] [facility] 112 [facility] 110 [place] [address] Tomy Kelly MD 112 [facility] 110 [place] [address] Social History Tobacco Use Types Packs/Day Years [...] often do you attend chur ch or islam services? Never 07/13/2023 Do you belong to any clubs o r organizations such as christianity groups, unions, fraternal or athletic groups, or [...] care, and heating? Not very hard 07/13/2023 [facility] of Occupat ional Health - Occupational [...] place to sleep or slept in a longterm (including now)? No 07/13/2023 Sex and Gender [...] [address] [facility] [address] [place] [address] Naomi Duggan PA [address] [facility] 110 [place] [address] documented as of this encounter Visit Diagnoses Not on filedocumented in this encounter Care Teams Tester Rocket Engine Relationship Specialty Start Date End Date Tomy Kelly MD [address] [place] [address] [place] [address] PCP - General Family Medicine 02/02/23 Bryn Gibson MD [address] [place] [address] [place] [address] PCP - Yadiel Commercial 09/27/23 documented as of this encounter
--- OUTSIDE RECORDS SUMMARY | 2025-05-24 07:39 | XMS_ITS | Encounter Summary ---
Author Organization [facility] Address [address] [place] [address] Care Team Providers Care Production Or Plant Engineer Name Role Phone Tomy Kelly MD Primary Care Provider [phone] Bryn Gibson MD Unavailable [phone] Encounter Details Date Type Department Care Team (Late st Contact Info) Description 07/13/2023 Orders Only [facility] [place] [facility] [address] [place] [address] [place] [address] A, Unknown Practice [address] [address] Social History Tobacco Use Types Packs/Day Years [...] often do you attend chur ch or orthodoxy services? Never 07/13/2023 Do you belong to any clubs o r organizations such as congregation groups, unions, fraternal or athletic groups, or [...] care, and heating? Not very hard 07/13/2023 [facility] of Occupat ional Health - Occupational [...] Visit N[facility]S [place] López [address] [facility] 110 [place] [address] Naomi Duggan PA [address] [place] [address] [place] [address] documented as of this encounter Procedures Procedure [...] on filedocumented in this encounter Care Teams Production Or Plant Engineer Relationship Specialty Start Date End Date Tomy Kelly MD [address] [facility] 110 [place] [address] PCP - General Family Medicine 02/02/23 Bryn Gibson MD [address] [facility] 110 [place] [address] PCP - Yadiel Commercial 09/27/23 documented as of this encounter
--- OUTSIDE RECORDS SUMMARY | 2025-05-24 07:40 | XMS_ITS | Encounter Summary ---
Author Organization [facility] Address [address] [facility] [place] [address] Care Team Providers Care Deckhand Name Role Phone Tomy Kelly MD Primary Care Provider [phone] Bryn Gibson MD Unavailable [phone] Encounter Details Date Type Department Care Team (Late st Contact Info) Description 11/08/2023 Abstract [facility] [place] [facility] 112 [facility] 110 [place] [address] Tomy Kelly MD 112 [facility] 110 [place] [address] Social History Tobacco Use Types Packs/Day Years [...] often do you attend chur ch or congregational services? Never 07/13/2023 Do you belong to any clubs o r organizations such as amish groups, unions, fraternal or athletic groups, or [...] [address] [facility] 110 [place] [address] Naomi Duggan PA [address] [facility] 110 [place] [address] documented as of this encounter Visit Diagnoses Not on filedocumented in this encounter Care Teams Deckhand Relationship Specialty Start Date End Date Tomy Kelly MD [address] [place] [address] [place] [address] PCP - General Family Medicine 02/02/23 Bryn Gibson MD [address] [place] [address] [place] [address] PCP - [place] [employer] 09/27/23 documented as of this encounter
--- NOTE | 2025-05-24 07:47 | PM.CN ---
Consult Note: HPI Data of Consult Patient: known to practice within the last 3 years Requesting Physician: Yanely Antunez NP Primary Care Provider: JASMEET WINKLER Consult Narrative Reason for consult: low back pain Narrative: Conrad Horn a 35 year old male with chronic low back pain unresponsive to > 6 weeks of PT/HEP, heat, ice, tylenol, NSAIDs. prior lumbar MRI consistent with multilevel degenerative changes and significant disc bulging at L4-5. pt utilize aleve and hydrocodone prn with benefit without side effects. recently underwent bilateral L4-5 TFESI with >50% improvement per pt. pain today 3/10 increasing to 7/10 with sitting and transitioning. cc:: CC: Yanely Antunez NP Review of Systems ROS Musculoskeletal Reports: back pain Meds Home Medications and Allergies Home Medications ?Medication ?Instructions ?Recorded ?Confirmed ?Type propranolol 40 mg tablet 40 mg PO DAILY 05/07/25 05/14/25 History hydrocodone 5 mg-acetaminophen 325 tab 05/14/25 History mg tablet Allergies Allergy/AdvReac Type Severity Reaction Status Date / Time No Known Drug Allergies Allergy Verified 05/14/25 07:04 Exam Constitutional Documenting provider has reviewed patient's vital signs: yes Common normals: no apparent distress, oriented x3, healthy appearing, alert and well nourished General appearance: cooperative HENMT Common normals: normocephalic, hearing grossly normal bilaterally and moist oral mucous membranes Head and scalp: normocephalic Eye Common normals: PERRL Pupil: PERRL Neck & C-Spine Common normals: full ROM General: normal visual inspection Chest Common normals: inspection of chest normal Respiratory Common normals: normal respiratory effort, no retractions and no use of accessory muscles Back & Pelvis Lumbar spine/lower back: pain with ROM and straight leg raise positive right; no lumbar spinal tenderness Sacroiliac joints: SI joints normal Other: negative right shameka(patricks), gaenslens, thigh thrust, compression test altered sensation bilateral L4/5 Neuro Common normals: oriented x3 Sensorium/orientation: alert Psych Common normals: mental status grossly normal, thought process normal, cooperative, affect normal, speech normal and activity/motor behavior normal Speech: normal speech Thought process: normal thought process Results Additional Findings Additional findings: If on a controlled substance or opioids, I have checked an [place] report on this patient and there are no aberrancies noted in the prescribing history.??If on a controlled substance or opioid a drug screen was completed and reviewed within the last year, and if there has not been a drug screen completed we ordered one today to monitor higher risk, state monitored pain medication use. As part of providing excellent, safe, comprehensive care, the following was completed at our patient's visit: 1. A medication reconciliation and review to ensure accurate knowledge of current/active medications, including asking our patients to inform us about any [id number] medications or herbal remedies/nutritional supplements/alternative remedies. 2. A review to specifically ensure our patients have had annual screening for screening for depression, screening for tobacco use, and screening for unhealthy alcohol use. For concerning screenings had a discussion with the patient, provided patient education, and recommended follow-up with primary care provider when appropriate. If patient noted with a risk of falling, they received education on strength, gait, and balance training to prevent future risk of falling. Portions of this note may have been carried over from the previous visit and updated as appropriate. Please note this office utilizes paper charting in addition to the electronic medical record. A list of current medications, vitals, and PMH is available there as the clinical staff outside of myself do not have access to [employer] charting during the clinic day operations. As part of providing quality comprehensive care the current medications, vitals, and PMH were reviewed in the paper chart. Assessment and Plan Assessment and Plan (1) Lumbar stenosis with neurogenic claudication: (2) Disc displacement, lumbar: Plan [id number] who presents for evaluation. failed conservative measures, as noted. imaging reviewed, as noted above. given symptoms and imaging, prudent to attempt bilateral l4-5 tfesi #2 under fluoroscopic guidance as directed by Dr Lemos. he is in agreement with this plan. meds reviewed, no changes. follow up after procedure.
== END 2025-05-24 07:38 | disposition home or self-care (01) ==
LOC: PM 07:37
PROVIDERS: PCP Family Medicine; Visit Provider Nurse Practitioner
DX: M48.062 Spinal stenosis, lumbar region with neurogenic claudication (principal); M51.26 Other intervertebral disc displacement, lumbar region
CPT/HCPCS: G0463

== ENCOUNTER 2025-06-28 03:29 | Emergency (ER) | payer BC, SELFPAY ==
[2025-06-28 03:35] VITALS: BP 137/98; PULSE 69; TEMP 36.6; O2SAT 99; BMI 32.1
--- NOTE | 2025-06-28 03:46 | ED.DENTAL1 ---
HPI - Dental/Oral General Chief complaint: Dental/Oral Stated complaint: L SIDED JAW/FACIAL PAIN/HEAD PAIN Time Seen by Provider: 06/28/25 03:41 Source: patient Mode of arrival: walk-in Limitations: no limitations History of Present Illness HPI Narrative: states he was exposed to a friend who has oral shingles. yesterday he developed pain of his left face/zygoma and is concern he may be developing oral shingles. No fever or headache. No dental pain. Past history of chicken pox . neg fever Related Data Home Medications ?Medication ?Instructions ?Recorded ?Confirmed propranolol 40 mg tablet 40 mg PO DAILY 05/07/25 05/14/25 hydrocodone 5 mg-acetaminophen 325 tab 05/14/25 mg tablet Allergies Allergy/AdvReac Type Severity Reaction Status Date / Time No Known Drug Allergies Allergy Verified 06/28/25 03:34 Review of Systems ROS Status of ROS 10 or more systems reviewed and unremarkable except as noted in history and below [facility] Medical History (Updated 06/28/25 @ 04:35 by Kailash Mahan MD) Smoker ?F17.200 - Nicotine dependence, unspecified, uncomplicated (ICD-10) Hypertension ?I10 - Essential (primary) hypertension (ICD-10) Surgical History (Updated 06/01/25 @ 13:28 by Kay Rivera) H/O removal of cyst ?Z98.890 - Other specified postprocedural states (ICD-10) History of removal of skin mole ?Z98.890 - Other specified postprocedural states (ICD-10) ?Z87.2 - Personal history of diseases of the skin and subcutaneous tissue (ICD-10) H/O eye surgery ?Z98.890 - Other specified postprocedural states (ICD-10) Social History Little interest or pleasure in doing things: not at all Feeling down, depressed, or hopeless: not at all Exam Constitutional Vital Signs, click to edit/add: Last Vital Signs Temp 97.8 F 06/28/25 03:35 Pulse 69 06/28/25 03:35 Resp 16 06/28/25 03:35 BP 137/98 H 06/28/25 03:35 Pulse Ox 99 06/28/25 03:35 O2 Del Method Room Air 06/28/25 03:35 Common normals: no apparent distress, average body habitus, oriented x3, no limitations, healthy appearing, alert and well nourished [facility] Common normals: normocephalic and head/scalp atraumatic Tympanic membrane: TMs normal bilaterally Eye Common normals: EOMs intact bilaterally and conjunctivae normal Respiratory Common normals: normal respiratory effort, no retractions, no use of accessory muscles and clear to auscultation bilaterally Cardio Common normals: regular rate, regular rhythm, S1 normal heart sound and S2 normal heart sound Extremity Common normals: normal to inspection and full ROM Neuro Common normals: oriented x3, CN's II-XII intact bilaterally, moves all extremities, no focal motor deficits and no sensory deficits noted Psych Appearance: grossly normal Course Vital Signs Vital signs: Vital Signs Temperature 97.8 F 06/28/25 03:35 Pulse Rate 69 06/28/25 03:35 Respiratory Rate 16 06/28/25 03:35 Blood Pressure 137/98 H 06/28/25 03:35 Pulse Oximetry 99 06/28/25 03:35 Oxygen Delivery Method Room Air 06/28/25 03:35 Temperature 97.8 F 06/28/25 03:35 Pulse Rate 69 06/28/25 03:35 Respiratory Rate 16 06/28/25 03:35 Blood Pressure 137/98 H 06/28/25 03:35 Pulse Oximetry 99 06/28/25 03:35 Oxygen Delivery Method Room Air 06/28/25 03:35 MDM - Dental/Oral MDM Narrative Medical decision making narrative: patient presents concern he may have oral shingles. States he was exposed to someone with oral shingles. his left face/zygoma area is sore and he was concern he may be developing oral shingles. Exam of face, teeth and oral cavity neg. Basic labs normal including CBC and CRP. Mild elevation of sed rate. Patient reassured and discharged home to follow up with his doctor Lab Data Labs: Lab Results 06/28/25 Range/Units 03:55 WBC 7.6 (4.0-11.0) 10^3/uL RBC 4.88 (4.70-6.10) 10^6/uL Hgb 14.4 (14.0-18.0) g/dL Hct 42.6 (42.0-54.0) % MCV 87.3 (80.0-94.0) fL MCH 29.5 (25.9-34.0) pg MCHC 33.8 (29.9-35.2) g/dL RDW 12.3 (11.0-15.0) % Plt Count 259 (150-450) 10^3/uL MPV 10.1 (9.5-13.5) fL Neut % (Auto) 51.3 (43.0-75.0) % Lymph % (Auto) 30.6 (20.5-60.0) % [place] % (Auto) 10.7 (1.7-12.0) % Eos % (Auto) 6.2 (0.9-7.0) % Baso % (Auto) 0.9 (0.2-2.0) % Neut # (Auto) 3.9 (1.4-6.5) 10^3/uL Lymph # (Auto) 2.3 (1.2-3.8) 10^3/uL [place] # (Auto) 0.8 (0.3-0.8) 10^3/uL Eos # (Auto) 0.5 (0.0-0.7) 10^3/uL Baso # (Auto) 0.1 (0.0-0.1) 10^3/uL Abs Immat Gran (auto) 0.02 (0.00-0.03) 10^3/uL Imm/Tot Granulo (auto) 0.3 (0.0-0.5) % ESR 19 H (<=15) mm/hr Sodium 139 (136-145) mmol/L Potassium 4.0 (3.5-5.1) mmol/L Chloride 104 (98-107) mmol/L Carbon Dioxide 26.1 (21.0-32.0) mmol/L Anion Gap 12.9 BUN 16.0 (7.0-18.0) mg/dL Creatinine 0.89 (0.70-1.30) mg/dL Est GFR ( Amer) >60 (>=60 mL/min/1.73m^2) Est GFR (Non-Af Amer) >60 (>=60 mL/min/1.73m^2) BUN/Creatinine Ratio 18.0 Glucose 114 H (74-106) mg/dL Calcium 8.8 (8.5-10.1) mg/dL C-Reactive Protein <0.50 (<=0.50) mg/dL Discharge Plan Discharge Chief Complaint: Dental/Oral Clinical Impression: Atypical facial pain Patient Disposition: Home, Self-Care Prescriptions / Home Meds: No Action propranolol 40 mg tablet 40 mg PO DAILY hydrocodone-acetaminophen 5-325 mg tablet Print Language: French Instructions: Atypical Facial Pain (ED) Referrals: JASMEET WINKLER [Primary Care Provider, Family Practice] - 1 week
[2025-06-28 03:59] LABS: Hematocrit 42.6 % (42.0-54.0); Hemoglobin 14.4 g/dL (14.0-18.0); Immature Granulocytes Abs Auto 0.02 10^3/uL (0.00-0.03); Immature Granulocytes Pct Auto 0.3 % (0.0-0.5); Lymphocytes Absolute Auto 2.3 10^3/uL (1.2-3.8); Mean Corpuscular HGB Conc 33.8 g/dL (29.9-35.2); Mean Corpuscular Hemoglobin 29.5 pg (25.9-34.0); Mean Corpuscular Volume 87.3 fL (80.0-94.0); Platelet Count 259 10^3/uL (150-450); Red Blood Count 4.88 10^6/uL (4.70-6.10); White Blood Count 7.6 10^3/uL (4.0-11.0)
[2025-06-28 04:16] LABS: Anion Gap 12.9; Blood Urea Nitrogen 16.0 mg/dL (7.0-18.0); Calcium 8.8 mg/dL (8.5-10.1); Carbon Dioxide 26.1 mmol/L (21.0-32.0); Chloride 104 mmol/L (98-107); Estimated GFR (African America >60 (>=60 mL/min/1.73m^2); Estimated GFR (Non-African Ame >60 (>=60 mL/min/1.73m^2); Glucose 114 mg/dL (74-106); Potassium 4.0 mmol/L (3.5-5.1); Sodium 139 mmol/L (136-145)
== END 2025-06-28 04:45 | disposition home or self-care (01) ==
PROVIDERS: Emergency Provider Internal Medicine; PCP Family Medicine
DX: G50.1 Atypical facial pain (principal)
CPT/HCPCS: 36415; 80048; 85025; 85652; 86140; 99283

== ENCOUNTER 2025-07-23 08:06 | Day surgery (SDC) | payer BC, SELFPAY ==
[2025-07-23 08:15] VITALS: BP 139/92; PULSE 64; TEMP 36.5; O2SAT 99
[2025-07-23 09:43] VITALS: BP 157/98; PULSE 61; O2SAT 98
[2025-07-23 09:44] VITALS: BP 163/108; PULSE 63; O2SAT 98
[2025-07-23] MEDS: BUPIVACAINE HCL 0.25% PF 25 MG/10 ML VIAL INJ (09:47)
[2025-07-23] MEDS: IOHEXOL 240 MG/ML - 10 ML VIAL 24 MG INJ (09:47)
[2025-07-23] MEDS: LIDOCAINE HCL 2% 400 MG/20 ML MDV 3 ML INJ (09:47)
[2025-07-23] MEDS: 0.9 % SODIUM CHLORIDE 10 ML SYRINGE - SALINE FLUSH INJ (09:47)
[2025-07-23] MEDS: METHYLPREDNISOLONE ACETATE 80 MG/ML VIAL INJ (09:48)
--- NOTE | 2025-07-23 09:50 | W.PM.PROCNOT ---
Date of procedure: 07/23/25 Pre-op diagnosis: Pain due to lumbar stenosis with neurogenic claudication Post-op diagnosis: same as pre-op Procedure: Procedure: Bilateral L4-5 transforaminal epidural steroid injection Medications: Bupivacaine 0.25% 2cc, lidocaine 2% 1cc, depomedrol 80mg The patient was seen and examined in the preoperative holding area.? Informed consent was obtained and placed on the chart.? Patient was brought to the medical procedure unit and placed in the prone position where a timeout was completed verifying the correct patient, procedure site, position, and planned special equipment using sterile aseptic technique.? Under direct fluoroscopic visualization a 25-gauge Quincke tipped spinal needle was advanced at level left L4-5 to the designated neural foramen where contrast dye was injected to show adequate spread.? There was no evidence of vascular or adverse uptake.? Epidural spread was appreciated.? The above-mentioned injectate was then placed in a 1.5 mL aliquot preceded by negative aspiration.? The needle was removed. The same procedure, at the same level, was completed on the opposite side. ? Patient was taken to the postprocedural recovery area and monitored for an appropriate length of time before found suitable for discharge in the accompaniment of a responsible adult. Anesthesia: Local Surgeon: Fredi Lemos Pathology: none sent Condition: stable Disposition: no change
== END 2025-07-23 09:49 | disposition home or self-care (01) ==
PROVIDERS: PCP Family Medicine; Visit Provider Anesthesiology
DX: M48.062 Spinal stenosis, lumbar region with neurogenic claudication (principal); M54.50 Low back pain, unspecified
CPT/HCPCS: 64483; J0665; J1010; Q9966